=== PATIENT | female | born 1950 | race Caucasian/White ===

== ENCOUNTER 2020-02-25 15:21 | Inpatient (IN) | payer MEDICARE, SELFPAY ==
[2020-02-25] VITALS (25 sets, daily range): BP systolic 122–171; BP diastolic 53–92; PULSE 86–104; RESP 13–24; TEMP 36.7–36.8; O2SAT 93–100; BMI 38.4; BMI 42.2
--- NOTE | 2020-02-25 15:31 | XR_ITS ---
EXAMINATION: XR CHEST CLINICAL INFORMATION: Stroke COMPARISON: 09/27/2019 TECHNIQUE: Frontal view of the chest was obtained. FINDINGS: Heart size normal. Surgical clips are present in the left hemithorax. There may be some chronic calcification present in the left hemidiaphragm. Left basilar atelectasis or scarring is again seen. No new acute finding is present. XR/XR chest 1V IMPRESSION: Stable appearances when compared with 09/27/2019. No acute intrathoracic disease.
--- NOTE | 2020-02-25 15:32 | ECG_ITS ---
Test Reason : STROKE SYMPTOMS Blood Pressure : / mmHG Vent. Rate : 104 BPM Atrial Rate : 104 BPM P-R Int : 152 ms QRS Dur : 074 ms QT Int : 376 ms P-R-T Axes : 056 007 038 degrees QTc Int : 494 ms Sinus tachycardia Normal ECG When compared with ECG of 27-SEP-2019 10:32, No significant change was found Referred By: Ingrid Quezada Electronically Signed By:SOCO OWUSU MD
--- NOTE | 2020-02-25 15:32 | CT_ITS ---
EXAMINATION: CT SCAN OF THE HEAD WITHOUT CONTRAST CT ANGIOGRAM OF THE HEAD CT ANGIOGRAM OF THE NECK CLINICAL INFORMATION: Possible large vessel occlusion. Assess for possible thrombectomy. COMPARISON: CTA of the head and neck 09/27/2019. TECHNIQUE: A noncontrast CT scan of the head was obtained. Test bolus series followed by intravenous administration 70 mL of Omnipaque 350. Helical imaging was performed in the axial plane from the mediastinum to the skull vertex. A delayed post contrast CT scan of the head was obtained. The degree of stenosis is based off NASCET criteria. The data was processed at the electroencephalographic technologist workstation for generation of MIP images. Three-dimensional volume rendered reformatted images were also generated at an offline 3-D workstation. This CT examination was performed using dose optimization techniques as appropriate, variously including the following: *Automated exposure control *Adjustment of mA and/or kV according to patient size (this includes techniques or standardized protocols for targeted exams where dose is matched to indication/reason for exam; i.e. extremities or head) *Use of iterative reconstruction technique DLP: 704 mGy-cm. FINDINGS: CT Head: There is no evidence of acute intracranial hemorrhage or territorial infarction. No abnormal mass-effect or midline shift is seen. Stevens to white matter differentiation is well preserved. No extra-axial fluid collections are identified. There is no abnormal enhancement. The ventricles are normal in size. There is no abnormal attenuation within the brain parenchyma. The osseous structures and soft tissues are normal. The mastoid air cells and visualized portions of the paranasal sinuses are well-aerated. CTA Neck: There is a classic configuration of the arch of the aorta. There are mild atheromatous calcifications of the aortic arch. There are areas of great vessels of the neck are widely patent. Subclavian arteries appear normal. Both external carotid arteries are patent. There are tortuous, and the left common carotid artery extends almost to the midline. There is minimal atheromatous calcification at the left carotid bifurcation. The cervical internal carotid arteries appear normal. The origins of both vertebral arteries are well seen and appear normal. Both vertebral arteries are widely patent and demonstrate good opacification throughout their cervical course. The left vertebral artery is slightly dominant. Nonvascular: The study redemonstrates multiple calcifications in the parotid glands bilaterally. 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 There are mild emphysematous changes in the lungs. The study redemonstrates the 1.5 low density nodule at the midpole of the left lobe of the thyroid gland. There are no acute osseous findings. There is mild spondylosis and facet arthropathy in the cervical spine. CTA Head: There are mild atheromatous calcifications of the cavernous internal carotid arteries bilaterally. The vessels are patent. The middle and anterior cerebral arteries bilaterally demonstrate normal caliber with no evidence of focal stenosis, aneurysm or vascular malformation. There is normal arborization of the middle cerebral artery branches. The anterior communicating artery is normal. In the posterior circulation, the left vertebral artery is dominant. The vertebral arteries intradurally have normal caliber. The basilar artery appears normal. The posterior cerebral arteries have normal caliber. The venous sinuses opacify normally. CT/CT head for stroke IMPRESSION: CT head and neck: 1. There are no acute bleeds or territorial infarcts. There are no masses or areas of enhancement. 2. The study redemonstrates multiple calcifications in the parotid glands bilaterally. 3. 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 CTA head and neck: 1. There is minimal atheromatous calcification at multiple sites in the head and neck. 2. There are no flow-limiting stenoses, aneurysms or vascular malformations. This critical result was discussed with Ingrid Quezada by telephone on 02/25/2020 at 4:00 PM and it was ascertained that the content and urgency of the report was understood at the time of direct communication.
--- NOTE | 2020-02-25 15:33 | ED_ITS ---
HPI - Neuro Symptoms/Deficit General Chief Complaint: Weakness Stated Complaint: eye droop Time Seen by Provider: 02/25/20 15:31 Source: patient Mode of arrival: ambulatory Limitations: no limitations History of Present Illness HPI Narrative: 69 yo female with HTN, TIA 6 years ago, notes around 1230pm today she noted that the left side of her face was droopy, she took a nap and when she woke up her droop was worse and she felt her tongue was heavy and she was unable to speak that well - she did recently get dentures 8 weeks ago but today it was much worse, also notes she suffers from migraines and has had an aura recently, she also c/o low back pain and spasms for a few days. Onset (ago): hour(s) (3) Last Observed Normal: 12:30 Timing confirmed by: other (herself) Location: speech and left face History of same: Yes Severity: moderate Quality: weak Relieving factors: none Exacerbating factors: none Context: sudden onset On Anticoagulants: No Associated symptoms: other (dry mouth, anxiety, palpitations) Treatments Prior to Arrival: none Related Data Home Medications Medication Instructions Recorded Confirmed amlodipine 1 tab PO DAILY 02/25/20 02/25/20 gabapentin 1 cap PO BEDTIME 02/25/20 02/25/20 hydroxychloroquine 1 tab PO BID 02/25/20 02/25/20 mycophenolate mofetil 1 cap PO BID 02/25/20 02/25/20 omeprazole 1 cap PO DAILY 02/25/20 02/25/20 pilocarpine HCl 2 tab PO TID 02/25/20 02/25/20 venlafaxine 1 tab PO DAILY 02/25/20 02/25/20 Allergies Allergy/AdvReac Type Severity Reaction Status Date / Time acetaminophen [From PERCOCET] Allergy Unknown ITCH Unverified 01/04/20 16:53 morphine [MORPHINE] Allergy Unknown ITCH Unverified 01/04/20 16:53 From OXYCONTIN Allergy Unknown ITCH Uncoded 01/04/20 16:53 Review of Systems Review of Systems: Constitutional : No Fever, No Chills, No Fatigue ENT/Mouth : No sore throat, No Rhinorrhea Eyes: No Eye Pain, No Swelling, No Redness Cardiovascular : No Chest Pain, No SOB, No Dyspnea on Exertion Respiratory : No Cough, No Sputum Gastrointestinal : No Nausea, No Vomiting, No Diarrhea, No abdominal Pain Genitourinary : No Dysuria, No Urinary Frequency, No Hematuria, Musculoskeletal : No joint pain, No Myalgias, No Joint Swelling Skin : No Skin Lesions, No rash Neuro : pos Weakness, No Numbness, No Dizziness, no Headache Psych : No Anxiety/Panic, No Depression Heme/Lymph: No Bruising, No Bleeding,No Lymphadenopathy Endocrine : No Polyuria, No Polydipsia All other systems reviewed and are negative [facility], [place] Past Medical History Attestation statement: The following information was validated with the patient. Medical History (Updated 02/25/20 @ 16:36 by Ingrid Quezada DO) Carpal tunnel syndrome GERD (gastroesophageal reflux disease) Migraine Sjogrens syndrome Sleep apnea TIA (transient ischemic attack) Surgical History (Updated 02/25/20 @ 15:39 by Ingrid Quezada DO) S/P cholecystectomy Social History Social History (Updated 02/25/20 @ 15:39 by Ingrid Quezada DO) Smoking Status: Never smoker Use of substances other than those prescribed or required for medical reasons: No Advance Directives: No Advance Directives Information Provided: Yes Physical Exam Vital Signs: Vital Signs: Last Vital Signs Temp 98.3 F 02/25/20 15:34 Pulse 95 02/25/20 16:31 Resp 15 02/25/20 16:31 BP 151/73 H 02/25/20 16:31 Pulse Ox 100 02/25/20 16:31 Body Mass Index 38.4 Appearance: Alert. Oriented X3. Anxious, mild acute distress. Eyes: Pupils equal, round and reactive to light. ENT: Pharynx normal. Neck: Normal inspection. Neck supple. CVS: Normal heart rate and rhythm. Pulses normal. Respiratory: No respiratory distress. Breath sounds normal. Abdomen: Soft and nontender. Skin: Skin warm and dry. Normal skin color. Normal skin turgor. Extremities: No lower extremity edema. No calf ttp Neuro: Oriented X 3. partial L sided facial droop that spares the forehead. No sensory deficit. mild dysarthria Course Course Course Narrative: no report yet from Radiology 358pm call to Dr. Pickens 359pm - if CT scan negative treat with tPa - RNs aware and it is ordered call from Radiology 402pm - no acute hemorrhage noted at this time, no gross findings on CTA but just brief review pateint and aware of risks and benefits - patient wants to proceed with tPa no issues at this time feeling better, BP stable, Dr. Alexander aware and to admit patient on recheck speech is improving, L corner of mouth no longer drooping, her L eye is still drooping still able to move L forehead and L eyebrow MDM - Neuro Symptoms/Deficit MDM Narrative Medical decision making narrative: 69 yo female not on AC therapy, hx of HTN, sleep apnea, Sjogren's syndrome - here with 3 hours of L sided facial droop and some dysarthria brought back from the waiting room last known well around 1230pm per her when saw her face in mirror, has central sparing - stroke protocol initiated will discuss with Neurology only confounding issue is hx of migraines and reports aura for the past 3 days but did not have a headache and the facial droop has never happened before in the past with her migraines, she has no contraindications at this time if tPa recommended by Neurology Lab Data Result diagrams: 02/25/20 15:38 02/25/20 15:38 Labs: Lab Results 02/25/20 02/25/20 02/25/20 Range/Units 15:35 15:35 15:38 WBC (4.8-10.8) X10*3/uL RBC (4.20-5.50) X10*6/uL Hgb (12.0-16.0) g/dl Hct (37-47) % MCV (80-98) fL MCH (27.0-33.0) pg MCHC (31.0-35.0) g/dl RDW (11.0-16.0) % Plt Count (160-400) X10*3/uL MPV (9.4-12.3) fL Immature Gran % (Auto) (0.0-0.4) % Neut % (Auto) (45-73) % Lymph % (Auto) (20-40) % Greer % (Auto) (2-11) % Eos % (Auto) (0-4) % Baso % (Auto) (0-2) % Lymph # (Auto) (1.2-4.9) X10*3/uL [place] # (Auto) (0.1-1.2) X10*3/uL Eos # (Auto) (0.0-0.4) X10*3/uL Baso # (Auto) (0.0-0.2) X10*3/uL Abs Immat Gran (auto) (0.00-0.03) X10*3/uL Absolute Neuts (auto) (2.0-8.3) X10*3/uL Absolute Nucleated RBC (0.0-0.012) X10*3/uL Nucleated RBC % (auto) (0.0-0.2) /100WBC PT (10.8-13.0) SEC Whole Blood PT 11.3 (11.1-13.5) sec INR (0.9-1.1) Whole Blood INR 0.9 (0.9-1.1) APTT (24.1-38.0) SEC Sodium (135-145) mmol/L Potassium (3.3-5.1) mmol/l Chloride (96-108) mmol/L Carbon Dioxide (22-29) mmol/L Anion Gap (12-20) BUN (9-16) mg/dL Creatinine (0.5-1.4) mg/dL Estim Creat Clear Calc Estimated GFR POC Glucose 116 H (60-115) mg/dL Random Glucose (60-115) mg/dL Calcium (8.4-10.2) mg/dL Magnesium 2.0 (1.6-2.6) mg/dL Total Bilirubin 0.3 (0.0-1.0) mg/dL Direct Bilirubin < 0.2 (0.0-0.5) mg/dL AST 18 (5-31) U/L ALT 17 (0-31) U/L Alkaline Phosphatase 106 (39-117) U/L Total Creatine Kinase (26-140) U/L Troponin I High Sens (<3.5-17.0) ng/L Total Protein 7.6 (6.5-8.0) g/dL Albumin 4.4 (3.5-5.0) g/dL 02/25/20 02/25/20 02/25/20 Range/Units 15:38 15:38 15:38 WBC 8.5 (4.8-10.8) X10*3/uL RBC 4.84 (4.20-5.50) X10*6/uL Hgb 12.6 (12.0-16.0) g/dl Hct 39.4 (37-47) % MCV 81.4 (80-98) fL MCH 26.0 L (27.0-33.0) pg MCHC 32.0 (31.0-35.0) g/dl RDW 15.1 (11.0-16.0) % Plt Count 265 (160-400) X10*3/uL MPV 12.1 (9.4-12.3) fL Immature Gran % (Auto) 0.2 (0.0-0.4) % Neut % (Auto) 74.5 H (45-73) % Lymph % (Auto) 17.2 L (20-40) % Greer % (Auto) 6.6 (2-11) % Eos % (Auto) 1.3 (0-4) % Baso % (Auto) 0.2 (0-2) % Lymph # (Auto) 1.5 (1.2-4.9) X10*3/uL Greer # (Auto) 0.6 (0.1-1.2) X10*3/uL Eos # (Auto) 0.1 (0.0-0.4) X10*3/uL Baso # (Auto) 0.0 (0.0-0.2) X10*3/uL Abs Immat Gran (auto) 0.02 (0.00-0.03) X10*3/uL Absolute Neuts (auto) 6.4 (2.0-8.3) X10*3/uL Absolute Nucleated RBC 0.060 H (0.0-0.012) X10*3/uL Nucleated RBC % (auto) 0.7 H (0.0-0.2) /100WBC PT 10.6 L (10.8-13.0) SEC Whole Blood PT (11.1-13.5) sec INR 0.9 (0.9-1.1) Whole Blood INR (0.9-1.1) APTT 32.1 (24.1-38.0) SEC Sodium 140 (135-145) mmol/L Potassium 3.9 (3.3-5.1) mmol/l Chloride 104 (96-108) mmol/L Carbon Dioxide 23 (22-29) mmol/L Anion Gap 17 (12-20) BUN 16 (9-16) mg/dL Creatinine 0.79 (0.5-1.4) mg/dL Estim Creat Clear Calc 85.9 Estimated GFR > 60 POC Glucose (60-115) mg/dL Random Glucose 99 (60-115) mg/dL Calcium 8.9 (8.4-10.2) mg/dL Magnesium (1.6-2.6) mg/dL Total Bilirubin (0.0-1.0) mg/dL Direct Bilirubin (0.0-0.5) mg/dL AST (5-31) U/L ALT (0-31) U/L Alkaline Phosphatase (39-117) U/L Total Creatine Kinase 71 (26-140) U/L Troponin I High Sens (<3.5-17.0) ng/L Total Protein (6.5-8.0) g/dL Albumin (3.5-5.0) g/dL 02/25/20 Range/Units 15:38 WBC (4.8-10.8) X10*3/uL RBC (4.20-5.50) X10*6/uL Hgb (12.0-16.0) g/dl Hct (37-47) % MCV (80-98) fL MCH (27.0-33.0) pg MCHC (31.0-35.0) g/dl RDW (11.0-16.0) % Plt Count (160-400) X10*3/uL MPV (9.4-12.3) fL Immature Gran % (Auto) (0.0-0.4) % Neut % (Auto) (45-73) % Lymph % (Auto) (20-40) % Greer % (Auto) (2-11) % Eos % (Auto) (0-4) % Baso % (Auto) (0-2) % Lymph # (Auto) (1.2-4.9) X10*3/uL Greer # (Auto) (0.1-1.2) X10*3/uL Eos # (Auto) (0.0-0.4) X10*3/uL Baso # (Auto) (0.0-0.2) X10*3/uL Abs Immat Gran (auto) (0.00-0.03) X10*3/uL Absolute Neuts (auto) (2.0-8.3) X10*3/uL Absolute Nucleated RBC (0.0-0.012) X10*3/uL Nucleated RBC % (auto) (0.0-0.2) /100WBC PT (10.8-13.0) SEC Whole Blood PT (11.1-13.5) sec INR (0.9-1.1) Whole Blood INR (0.9-1.1) APTT (24.1-38.0) SEC Sodium (135-145) mmol/L Potassium (3.3-5.1) mmol/l Chloride (96-108) mmol/L Carbon Dioxide (22-29) mmol/L Anion Gap (12-20) BUN (9-16) mg/dL Creatinine (0.5-1.4) mg/dL Estim Creat Clear Calc Estimated GFR POC Glucose (60-115) mg/dL Random Glucose (60-115) mg/dL Calcium (8.4-10.2) mg/dL Magnesium (1.6-2.6) mg/dL Total Bilirubin (0.0-1.0) mg/dL Direct Bilirubin (0.0-0.5) mg/dL AST (5-31) U/L ALT (0-31) U/L Alkaline Phosphatase (39-117) U/L Total Creatine Kinase (26-140) U/L Troponin I High Sens < 3.5 (<3.5-17.0) ng/L Total Protein (6.5-8.0) g/dL Albumin (3.5-5.0) g/dL ECG Data Attestation: I personally reviewed and interpreted this ECG as follows: ECG interpretation date: 02/25/20 ECG interpretation time: 15:42 Interpretation: Rate: 104 Rhythm: sinus tachycardia [place]: normal Normal P waves. Normal RAQUEL. Normal QRS complex. ST T wave : normal qTC: normal prior studies: some artifact, no active ischemia The study has been interpreted contemporaneously by me. . NIH Stroke Scale Internal: Initial- Upon Arrival Level of Consciousness: Alert Level of Consciousness Questions: Answers both questions correctly Level of Consciousness Commands: Performs both tasks correctly Best Gaze: Normal Visual: No visual loss Facial Palsy: Partial paralysis Motor Arm (Right): No drift Motor Arm (Left): No drift Motor Leg (Right): No drift Motor Leg (Left): No drift Limb Ataxia: Absent Sensory: Normal Best Language: No aphasia Dysarthia: Mild to moderate dysarthria Extinction and Inattention: No abnormality Score: 3 Critical Care Time Critical Care Time Critical Care Time: Yes Total Critical Care Time: 60 Attestation: medical consult, tPa, call to Neurology/ICU, bedside for tPa I attest to this time spent taking care of the patient Discharge Plan Discharge Clinical Impression: Acute CVA (cerebrovascular accident) Patient Disposition: Admitted As Inpatient
[2020-02-25 15:43] LABS: MANUAL DIFF FLAG NO
[2020-02-25 15:44] LABS: Glucose, Whole Blood 116 mg/dL (60-115); Prothrombin Time Whole Bld POC 11.3 sec (11.1-13.5); ~PT, ~INR - Anti Coag Clinic 0.9 (0.9-1.1)
[2020-02-25 15:44] LABS: Basophils Percent Auto 0.2 % (0-2); Eosinophils Absolute Auto 0.1 X10*3/uL (0.0-0.4); Eosinophils Percent Auto 1.3 % (0-4); Hematocrit 39.4 % (37-47); Hemoglobin 12.6 g/dl (12.0-16.0); Imm Gran Abs Auto 0.02 X10*3/uL (0.00-0.03); Imm Gran Pct Auto 0.2 % (0.0-0.4); Lymphocytes Absolute Auto 1.5 X10*3/uL (1.2-4.9); Lymphocytes Percent Auto 17.2 % (20-40); Mean Corpuscular Volume 81.4 fL (80-98); Mean Platelet Volume 12.1 fL (9.4-12.3); Monocytes Absolute Auto 0.6 X10*3/uL (0.1-1.2); Monocytes Percent Auto 6.6 % (2-11); NRBC Pct Auto 0.7 /100WBC (0.0-0.2); Neutrophils Absolute Auto 6.4 X10*3/uL (2.0-8.3); Neutrophils Percent Auto 74.5 % (45-73); Platelet Count 265 X10*3/uL (160-400); Red Blood Count 4.84 X10*6/uL (4.20-5.50); Red Cell Distribution Width 15.1 % (11.0-16.0); White Blood Count 8.5 X10*3/uL (4.8-10.8)
[2020-02-25 15:47] LABS: Stroke Lab Use COMPLETE
[2020-02-25 15:51] LABS: INTERNATIONAL NORM RATIO 0.9 (0.9-1.1); Prothrombin Time 10.6 SEC (10.8-13.0)
[2020-02-25] MEDS: iohexoL 350 MG/ML 100 ML INFUS..BTL IV (15:53)
[2020-02-25 15:54] LABS: Partial Thromboplastin Time 32.1 SEC (24.1-38.0)
[2020-02-25 16:20] LABS: Alanine Aminotransferase 17 U/L (0-31); Albumin Level 4.4 g/dL (3.5-5.0); Alkaline Phosphatase 106 U/L (39-117); Aspartate Amino Transferase 18 U/L (5-31); Bilirubin Direct < 0.2 mg/dL (0.0-0.5); Bilirubin Total 0.3 mg/dL (0.0-1.0); Total Protein 7.6 g/dL (6.5-8.0); Troponin-I High Sensitivity < 3.5 ng/L (<3.5-17.0)
[2020-02-25 16:24] LABS: Anion Gap 17 (12-20); Blood Urea Nitrogen 16 mg/dL (9-16); Calcium 8.9 mg/dL (8.4-10.2); Carbon Dioxide 23 mmol/L (22-29); Chloride 104 mmol/L (96-108); Creatinine Clr Calc Pharmacy 85.9; Estimated Glomerular Filt Rate > 60; Glucose Random 99 mg/dL (60-115); Potassium 3.9 mmol/l (3.3-5.1); Sodium 140 mmol/L (135-145)
--- NOTE | 2020-02-25 16:43 | PC.NURSE ---
daughter cisco could like to be contacted at [phone]
--- NOTE | 2020-02-25 16:53 | PM.EVENT ---
Event Note Date of Service: 02/25/2020 Event Note: 69 yo woman being given TPA in ED for presumed stroke. Will be admitted to ICU. PMHx obesity, HTN, TIA 6 years ago, migraines w recent aura, but no GEE now. Has VALERIANO, wears CPAP at home. About 3 hours DISABILITY COORDINATOR noted that the left side of her face was droopy. She took a nap and when she woke up her droop was worse and she felt her tongue was heavy and she was unable to speak that well. In ED, BP about 170/80. Obvious left facial droop, according to Dr. Quezada, no other neuro deficits. CT negative. Consulted Dr. Pickens who approved the TPA. On arrival to the ICU, BP 158/83. Breathing easy w SpO2 97% room air. I questioned her and examined her with Dr. Pickens. On exam, the only finding is a slight left eyelid ptosis, but the orbicularis musc is strong. She also has sl. thick speech which she says is her usual bec of her new dentures. She said her speech was worse before the TPA. She has no other neuro deficits. We gave her a mirror to look at herself. She says that her lid droop was worse before the TPA. 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 The picture on it seems to show a slight left ptosis. Passed a bedside swallow eval with no problem. IMPRESSION: Possible stroke. MRI tomorrow will tell. Admit for neuro- and hemod monitoring. Further w/u tomorrow. Time: 40 min. ([id number])
[2020-02-25 17:19] LABS: SARS COV2 PCR INHOUSE NEGATIVE (Negative)
--- NOTE | 2020-02-25 18:04 | PM.NEUROCN ---
History of Present Illness Data of Consult Service Date: 02/25/20 Primary Care Provider: Aden Dinero MD HPI Reason for consult: Left facial droop and dysarthria This is a 69-year-old woman who presented 3-1/2 hours after onset of left facial droop and closing of the left eye and takes slurred speech. She had a negative CT scan of the head in the ER and was given TPA the diagnoses of acute stroke with a stroke scale of 3. She feels that her speech is better and almost back to normal although it's still a little hard which she attributes to her new dentures that she is getting used to. She feels that her face is better but her left eye is still droopy. There is no previous history of stroke. She has a history of migraines with aura and for the last 2 or 3 days she has been having visual aura in the left field and minor headaches.Her history is remarkable for hypertension, Mild depression. Review of Systems Eyes: Eyes: Reports no additional eye complaints ENT: Reports system reviewed and no additional complaints, except as documented and Reports Normal hearing present Cardiovascular: Cardiovascular: Reports no additional cardiovascular complaints Respiratory: Respiratory: Reports no additional respiratory complaints Gastrointestinal: Gastrointestinal: Reports no additional gastrointestinal complaints Musculoskeletal: Musculoskeletal: Reports no additional musculoskeletal complaints Integumentary/Breasts: Skin/Breast: Reports system reviewed and no additional complaints, except as docu Neurologic: Reports as per HPI and Reports Normal hearing present Psychiatric: Psychiatric: Reports as per HPI Endocrine: Endocrine: Reports no additional endocrine complaints Hematologic/Lymphatic: Hematologic/Lymphatic: Reports no additional hematologic/lymphatic complaints Allergic/Immunologic: Allergic/Immunologic: Reports no additional allergic/immunologic complaints [facility] Past Medical History Medical History (Updated 02/25/20 @ 18:10 by Mary Pickens MD) Carpal tunnel syndrome GERD (gastroesophageal reflux disease) Migraine Sjogrens syndrome Sleep apnea TIA (transient ischemic attack) Surgical History Surgical History (Updated 02/25/20 @ 15:39 by Ingrid Quezada DO) S/P cholecystectomy Social History Social History (Updated 02/25/20 @ 15:39 by Ingrid Quezada DO) Smoking Status: Never smoker Use of substances other than those prescribed or required for medical reasons: No Advance Directives: No Advance Directives Information Provided: Yes Meds Allergies Allergy/AdvReac Type Severity Reaction Status Date / Time acetaminophen [From PERCOCET] Allergy Unknown ITCH Unverified 01/04/20 16:53 morphine [MORPHINE] Allergy Unknown ITCH Unverified 01/04/20 16:53 From OXYCONTIN Allergy Unknown ITCH Uncoded 01/04/20 16:53 Home Medications Medication Instructions Recorded Confirmed Type amlodipine 1 tab PO DAILY 02/25/20 02/25/20 History gabapentin 1 cap PO BEDTIME 02/25/20 02/25/20 History hydroxychloroquine 1 tab PO BID 02/25/20 02/25/20 History mycophenolate mofetil 1 cap PO BID 02/25/20 02/25/20 History omeprazole 1 cap PO DAILY 02/25/20 02/25/20 History pilocarpine HCl 2 tab PO TID 02/25/20 02/25/20 History venlafaxine 1 tab PO DAILY 02/25/20 02/25/20 History Physical Exam Vital Signs: Vital Signs: Last Vital Signs Temp 98.3 F 02/25/20 15:34 Pulse 96 02/25/20 17:15 Resp 20 02/25/20 17:15 BP 142/72 H 02/25/20 17:15 Pulse Ox 98 02/25/20 17:15 Body Mass Index 38.4 Const: General: cooperative, comfortable, no acute distress, well developed, alert and awake Nutritional Appearance: well nourished Orientation/consciousness: oriented to person, oriented to place and oriented to time Limitations: no limitations HENMT: Head: Yes normal to inspection, Yes normocephalic and Yes atraumatic Ears: hearing grossly normal bilaterally General nose exam: Normal external nose present Face and sinus: Yes normal facial exam Mouth: Normal oral and palatal mucosa present Eyes: General: appearance normal, both eyes and all related structures Visual [place]: normal visual [place] by confrontation Alignment and Position: alignment normal Periorbital: periorbital findings normal Eyelids: Yes eyelids normal Conjunctivae: conjunctivae normal Sclerae: sclerae normal Corneas: corneas normal Pupils: Equal, round and reactive pupils present and Pupil accommodation reflex normal EOM: EOMs intact bilaterally Direct Ophthalmoscopy: normal light reflex Neck: Neck: Yes normal visual inspection, Yes full ROM and Yes no meningeal signs Thyroid: Thyroid normal Carotids: normal carotid upstroke and bounding pulses Chest: Chest palpation & inspection: normal inspection of the chest Resp: Effort & Inspection: normal respiratory effort Auscultation: clear to auscultation bilaterally Cardio: Rate: regular rate Rhythm: regular rhythm Heart sounds: S1 normal heart sound present and S2 normal heart sound present Peripheral pulses: Peripheral pulses 2+ throughout GI: Inspection: Yes normal to inspection Percussion: Yes normal to percussion Auscultation: normal bowel sounds Rectal Exam - Female: deferred Back/Spine/Pelvis: Cervical Spine: normal cervical lordosis and cervical ROM normal Thoracic/Lumbar Spine: thoracic and lumbar spine normal to inspection Skin: General skin exam: no rashes or lesions noted Neuro: General: oriented to person, oriented to place, oriented to time, gait normal, tone normal, moves all extremities, Normal light touch and pain sensation, no meningeal signs, no focal motor deficits, CN's II-XI intact bilaterally, normal sensation to monofilament and deep tendon reflexes 2+ bilaterally Cranial nerves: Yes CN's II-XII intact bilaterally (Except for drooping of the left Upper lid with mild blepharospasm), Yes Equal, round and reactive pupils present, Yes Bilaterally intact EOM present, Yes Nystagmus not present, Yes Normal facial strength present (No facial weakness but she has ptosis of the left upper lid), Yes Midline tongue present, Yes Normal gag reflex present, Yes Symmetric palate elevation present, Yes Normal hearing present and Yes Ability to bilaterally rotate head present Cognition (Neuro): normal cognition Speech: Other speech findings present (Neuro) Gait exam (Neuro): Normal gait present Motor exam (neuro): 5/5 motor strength present throughout, Pronator motor function not present, no tremor noted, no asterixis, Motor fasciculations not present, Normal motor muscle tone present throughout and Motor abnormalities not present Sensory Exam: Bilaterally intact graphesthesia Deep tendon reflexes (DTR's): Right triceps reflex intensity grade: 2+, Left triceps reflex intensity grade: 2+, Rt Biceps (C5, C6): 2+, Left biceps reflex intensity grade: 2+, Right brachioradialis reflex intensity grade: 2+, Left brachioradialis reflex intensity grade: 2+, Right patellar reflex intensity grade: 2+, Left patellar reflex intensity grade: 2+, Right ankle reflex intensity grade: 2+ and Left ankle reflex intensity grade: 2+ Plantar Reflex Responses: downgoing: right, left and bilateral Coordination: [id number]-[id number] test normal, [id number]-[id number] test normal, tandem gait normal and Romberg test negative Pupils: Normal pupillary reactivity/response: bilateral Extrem: General: Yes normal to inspection, Yes normal exam except as noted and Yes no pedal edema Psych: Appearance: grossly normal Mental Status: mental status grossly normal Speech and movement: Normal speech and movement present and Clear speech present Affect: normal affect Attitude: cooperative Thought process: Normal thought process present Results Labs CBC & Chem 7: 02/25/20 15:38 02/25/20 15:38 Labs: Short CBC 02/25/20 Range/Units 15:38 WBC 8.5 (4.8-10.8) X10*3/uL Hgb 12.6 (12.0-16.0) g/dl Hct 39.4 (37-47) % Plt Count 265 (160-400) X10*3/uL BMP 02/25/20 15:38 Sodium 140 Potassium 3.9 Chloride 104 Carbon Dioxide 23 BUN 16 Creatinine 0.79 Calcium 8.9 Cardiac Enzymes 02/25/20 Range/Units 15:38 Total Creatine Kinase 71 (26-140) U/L Liver Function 02/25/20 Range/Units 15:38 Total Bilirubin 0.3 (0.0-1.0) mg/dL Direct Bilirubin < 0.2 (0.0-0.5) mg/dL AST 18 (5-31) U/L ALT 17 (0-31) U/L Alkaline Phosphatase 106 (39-117) U/L Albumin 4.4 (3.5-5.0) g/dL Assessment and Plan (1) Acute CVA (cerebrovascular accident): Problem details: Her speech is almost back to normal. She has some ptosis of the left upper lid Status: Acute Status post TPA for acute stroke like event. Recommend MRI of the brain in the morning to see if there has been a small acute stroke. May start aspirin 81 mg after 24 hours. (2) Ptosis: Status: Acute Observation (3) Migraine with aura: Status: Acute Observation
--- NOTE | 2020-02-25 18:53 | PC.NURSE ---
Artem Boyle and daughter Noris Frazier are pt's health care proxies. Noris is the primary proxy per pt. Phone number for Noris is [phone]
--- NOTE | 2020-02-25 19:16 | PM.CCHP ---
History of Present Illness Date of Service: 02/25/20 <RAINE Stevens - Last Filed: 02/26/20 03:17> Chief Complaint: facial droop <RAINE Stevens - Last Filed: 02/26/20 03:17> Patient is a 69-year-old female with a past medical history of TIA 6 yrs ago not on AC therapy, HTN, VALERIANO wears CPAP at night and Sjogren's sydrome came to the ED c/o 3 hours left sided facial droop. she states around 12:30pm today she noticed the left side of her face was droopy, she took a nap and when she woke up she states that it was worse so she came to the emergency department. The patient states she has had an aura for the past 3 days but no headache, she does have a remote history of migraines. the patient also states she is unable to speak that well, tongue is heavy she says she got dentures about 8 weeks ago and this has affected her speech but her speech today is worse than her baseline. In the ED, Dr Quezada notes left sided facial droop with central sparing, Stroke protocol was initiated, Dr. Pickens examined the patient, head CT was negative so tPA was ordered and given at 4:11pm. Upon arrival, BP was 160/87, HR 100, RR 18, O2 96% on RA, EKG NSR, no acute changes, labs all WNL. Pt to be admitted to ICU for monitoring s/p tPA. <RAINE Stevens - Last Filed: 02/26/20 03:17> Review of Systems Review of Systems: Constitutional: No Weight loss, No Fever, No Chills, No Night Sweats, No Fatigue, No Malaise ENT/Mouth: No Hearing loss, No Ear Pain, No Nasal Congestion, No Sinus Pain, No Hoarseness, No sore throat Eyes: No Eye Pain, No Swelling, No Redness, No Foreign Body, No Discharge, No Vision Changes Cardiovascular: No Chest Pain, No SOB, No Dyspnea on Exertion, No Orthopnea, No Edema, No Palpitations Respiratory: No Cough, No Sputum, No Wheezing, No Smoke Exposure, No Dyspnea Gastrointestinal: No Nausea, No Vomiting, No Diarrhea, No Constipation, No abdominal Pain, No Hematochezia, No Melena Musculoskeletal: No joint pain, No Myalgias, No Joint Swelling Skin: No Skin Lesions, No rash Neuro: No Weakness, No Numbness, No Paresthesias, No Loss of Consciousness, No Dizziness, No Headache, + aura, + left sided facial droop <RAINE Stevens - Last Filed: 02/26/20 03:17> Yes all other systems are reviewed and are negative <RAINE Stevens - Last Filed: 02/26/20 03:17> ENT: Reports Normal hearing present <RAINE Stevens Last Filed: 02/26/20 03:17> Neurologic: Reports as per HPI, Reports Normal hearing present and Denies Sensory deficit (Neuro) <RAINE Stevens Last Filed: 02/26/20 03:17> PMF Past Medical History Medical History: Medical History Abnormal colonoscopy Abnormal endoscopy of upper gastrointestinal tract Carpal tunnel syndrome Cataracts, bilateral Chemotherapy management, encounter for Colon polyps Far-sightedness Full dentures GERD (gastroesophageal reflux disease) Migraine 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 Sjogrens syndrome Sleep apnea TIA (transient ischemic attack) <RAINE Stevens Last Filed: 02/26/20 03:17> Functional capacity: independent ambulation <RAINE Stevens - Last Filed: 02/26/20 03:17> Patient : No <RAINE Stevens Last Filed: 02/26/20 03:17> Surgical History Surgical History: Surgical History H/O parathyroidectomy History of lung biopsy S/P cholecystectomy <RAINE Stevens Last Filed: 02/26/20 03:17> Social History Social History: Social History Household Members: Spouse Housing: House Do you presently have visiting nurse or other home services: No Smoking Status: Never smoker Use of substances other than those prescribed or required for medical reasons: No Currently Displaying Signs/Symptoms of Drug Intoxication Withdrawal: No Have you been hit, kicked, punched, or otherwise hurt by someone within the past year? If so, by whom?: No Do you feel safe in your current relationship?: No Is there a partner from a previous relationship who is making you feel unsafe now?: No Are you made to feel afraid or neglected: No Advance Directives: No Advance Directives Information Provided: Yes Do you have thoughts of harming others: None Do you have a plan to hurt others: No Plan Recently lost weight without trying: No <RAINE Stevens - Last Filed: 02/26/20 03:17> Meds Allergies/Adverse reactions: Allergies Allergy/AdvReac Type Severity Reaction Status Date / Time morphine [MORPHINE] Allergy Unknown ITCH Verified 02/26/20 11:17 From OXYCONTIN Allergy Unknown ITCH Uncoded 01/04/20 16:53 <RAINE Stevens - Last Filed: 02/26/20 03:17> Home medications: Home Medications Medication Instructions Recorded Confirmed Type amlodipine 1 tab PO DAILY 02/25/20 02/25/20 History gabapentin 1 cap PO BEDTIME 02/25/20 02/25/20 History hydroxychloroquine 1 tab PO BID 02/25/20 02/25/20 History mycophenolate mofetil 1 cap PO BID 02/25/20 02/25/20 History omeprazole 1 cap PO DAILY 02/25/20 02/25/20 History pilocarpine HCl 2 tab PO TID 02/25/20 02/25/20 History venlafaxine 1 tab PO DAILY 02/25/20 02/25/20 History <RAINE Stevens - Last Filed: 02/26/20 03:17> Physical Exam Vital Signs: Vital Signs: Last Vital Signs Temp 98.3 F 02/25/20 15:34 Pulse 95 02/25/20 19:13 Resp 24 H 02/25/20 19:13 BP 134/80 02/25/20 19:13 Pulse Ox 97 02/25/20 19:13 Body Mass Index 42.2 <RAINE Stevens Last Filed: 02/26/20 03:17> Const: General: cooperative, healthy appearing, comfortable and no acute distress <Katherine Thomas PA - Last Filed: 02/26/20 03:17> Nutritional Appearance: obese <Katherine Thomas PA - Last Filed: 02/26/20 03:17> Orientation/consciousness: patient oriented x3 <Katherine Thomas PA - Last Filed: 02/26/20 03:17> Limitations: no limitations <Katherine Thomas PA - Last Filed: 02/26/20 03:17> HENMT: Head: Yes normal to inspection and Yes atraumatic <Katherine Thomas PA - Last Filed: 02/26/20 03:17> Ears: hearing grossly normal bilaterally <Katherine Thomas PA - Last Filed: 02/26/20 03:17> Face and sinus: Yes other (slight left sided droop) <Katherine Thomas PA - Last Filed: 02/26/20 03:17> Teeth and gingiva: dentures <Katherine Thomas PA - Last Filed: 02/26/20 03:17> Eyes: Eyelids: Yes lid lag (left slight) <Katherine Thomas PA - Last Filed: 02/26/20 03:17> Pupils: Equal, round and reactive pupils present <Katherine Thomas PA - Last Filed: 02/26/20 03:17> EOM: EOMs intact bilaterally <Katherine Thomas PA - Last Filed: 02/26/20 03:17> Neck: Neck: Yes normal visual inspection, Yes full ROM and Yes supple <Katherine Thomas PA - Last Filed: 02/26/20 03:17> Resp: Effort & Inspection: normal respiratory effort and able to speak in complete sentences <Katherine Thomas PA - Last Filed: 02/26/20 03:17> Auscultation: clear to auscultation bilaterally, no crackles, no rales, no rhonchi and no wheezes <Katherine Thomas PA - Last Filed: 02/26/20 03:17> Cardio: Rate: regular rate <Katherine Thomas PA - Last Filed: 02/26/20 03:17> Rhythm: regular rhythm <Katherine William PA - Last Filed: 02/26/20 03:17> Heart sounds: normal S1 and S2 <Katherine Thomas PA - Last Filed: 02/26/20 03:17> GI: Inspection: Yes normal to inspection and Yes obesity <Katherine Thomas PA - Last Filed: 02/26/20 03:17> Palpation (GI): Soft to palpation, nontender and no guarding <Katherine Thomas PA - Last Filed: 02/26/20 03:17> Auscultation: normal bowel sounds <Katherine Thomas PA - Last Filed: 02/26/20 03:17> Neuro: General: patient oriented x3 <Katherine Thomas PA - Last Filed: 02/26/20 03:17> Cranial nerves: Yes CN's II-XII intact bilaterally, Yes Equal, round and reactive pupils present, Yes Bilaterally intact EOM present and Yes Normal hearing present <Katherine Thomas PA - Last Filed: 02/26/20 03:17> Cognition (Neuro): normal cognition <Katherine Thomas PA - Last Filed: 02/26/20 03:17> Speech: Abnormal speech present Details: garbled (pt not wearing dentures during assessment) <Katherine Thomas PA - Last Filed: 02/26/20 03:17> Motor exam (neuro): 5/5 motor strength present throughout, Pronator motor function not present and Motor abnormalities not present <Katherine Thomas PA - Last Filed: 02/26/20 03:17> Sensory Exam: No Sensory deficit (Neuro) <Katherine Thomas PA - Last Filed: 02/26/20 03:17> Results Labs CBC and Chem 7: : 02/26/20 05:21 02/26/20 05:21 <Katherine Thomas PA - Last Filed: 02/26/20 03:17> Labs: Laboratory Results - last 24 hr 02/25/20 02/25/20 02/25/20 15:35 15:35 15:38 MCV MCH MCHC RDW Plt Count MPV Immature Gran % (Auto) Neut % (Auto) Lymph % (Auto) Noble % (Auto) Eos % (Auto) Baso % (Auto) Lymph # (Auto) Noble # (Auto) Eos # (Auto) Baso # (Auto) Abs Immat Gran (auto) Absolute Neuts (auto) Absolute Nucleated RBC Nucleated RBC % (auto) PT Whole Blood PT 11.3 INR Whole Blood INR 0.9 APTT Anion Gap Estim Creat Clear Calc Estimated GFR POC Glucose 116 H Random Glucose Calcium Magnesium 2.0 Total Bilirubin 0.3 Direct Bilirubin < 0.2 AST 18 ALT 17 Alkaline Phosphatase 106 Total Creatine Kinase Troponin I High Sens Total Protein 7.6 Albumin 4.4 Coronavirus (PCR) 02/25/20 02/25/20 02/25/20 15:38 15:38 15:38 MCV 81.4 MCH 26.0 L MCHC 32.0 RDW 15.1 Plt Count 265 MPV 12.1 Immature Gran % (Auto) 0.2 Neut % (Auto) 74.5 H Lymph % (Auto) 17.2 L Noble % (Auto) 6.6 Eos % (Auto) 1.3 Baso % (Auto) 0.2 Lymph # (Auto) 1.5 Noble # (Auto) 0.6 Eos # (Auto) 0.1 Baso # (Auto) 0.0 Abs Immat Gran (auto) 0.02 Absolute Neuts (auto) 6.4 Absolute Nucleated RBC 0.060 H Nucleated RBC % (auto) 0.7 H PT 10.6 L Whole Blood PT INR 0.9 Whole Blood INR APTT 32.1 Anion Gap 17 Estim Creat Clear Calc 85.9 Estimated GFR > 60 POC Glucose Random Glucose 99 Calcium 8.9 Magnesium Total Bilirubin Direct Bilirubin AST ALT Alkaline Phosphatase Total Creatine Kinase 71 Troponin I High Sens Total Protein Albumin Coronavirus (PCR) 02/25/20 02/25/20 15:38 16:09 MCV MCH MCHC RDW Plt Count MPV Immature Gran % (Auto) Neut % (Auto) Lymph % (Auto) Noble % (Auto) Eos % (Auto) Baso % (Auto) Lymph # (Auto) Noble # (Auto) Eos # (Auto) Baso # (Auto) Abs Immat Gran (auto) Absolute Neuts (auto) Absolute Nucleated RBC Nucleated RBC % (auto) PT Whole Blood PT INR Whole Blood INR APTT Anion Gap Estim Creat Clear Calc Estimated GFR POC Glucose Random Glucose Calcium Magnesium Total Bilirubin Direct Bilirubin AST ALT Alkaline Phosphatase Total Creatine Kinase Troponin I High Sens < 3.5 Total Protein Albumin Coronavirus (PCR) NEGATIVE <RAINE Stevens - Last Filed: 02/26/20 03:17> Imaging Radiologist's Impressions: Impressions Chest X-Ray 02/25/20 15:31 IMPRESSION: Stable appearances when compared with 09/27/2019. No acute intrathoracic disease. Head CT 02/25/20 15:32 IMPRESSION: CT head and neck: 1. There are no acute bleeds or territorial infarcts. There are no masses or areas of enhancement. 2. The study redemonstrates multiple calcifications in the parotid glands bilaterally. 3. 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 CTA head and neck: 1. There is minimal atheromatous calcification at multiple sites in the head and neck. 2. There are no flow-limiting stenoses, aneurysms or vascular malformations. This critical result was discussed with Ingrid Quezada by telephone on 02/25/2020 at 4:00 PM and it was ascertained that the content and urgency of the report was understood at the time of direct communication. Head/Neck CTA 02/25/20 15:32 IMPRESSION: CT head and neck: 1. There are no acute bleeds or territorial infarcts. There are no masses or areas of enhancement. 2. The study redemonstrates multiple calcifications in the parotid glands bilaterally. 3. 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 CTA head and neck: 1. There is minimal atheromatous calcification at multiple sites in the head and neck. 2. There are no flow-limiting stenoses, aneurysms or vascular malformations. This critical result was discussed with Ingrid Quezada by telephone on 02/25/2020 at 4:00 PM and it was ascertained that the content and urgency of the report was understood at the time of direct communication. <RAINE Stevens - Last Filed: 02/26/20 03:17> Assessment and Plan (1) Acute CVA (cerebrovascular accident): Status: Acute <RAINE Stevens - Last Filed: 02/26/20 03:17> hemodynamic and neurological monitoring as per s/p tPA/stroke protocol <RAINE Stevens - Last Filed: 02/26/20 03:17>
--- NOTE | 2020-02-25 19:35 | MHC.STROKE ---
Addendum entered by Maya Gannon RN 02/27/20 12:11: DR. JACKSON IS NOT RECOMMENDING A HIGH DOSE STATIN, SHE WILL START ON ATORVASTATIN 20MG AND I ADVISED HER TO MONITOR FOR SIDE EFFECTS AND DISCUSS WITH HER PCP. Addendum entered by Maya Gannon RN 02/27/20 12:09: I SPOKE WITH DR JACKSON AND HE IS RECOMMENDING ASPIRIN 81MG DAILY AND A STATIN. Addendum entered by Maya Gannon RN 02/27/20 11:39: I MET WITH PATIENT TODAY PRIOR TO DISCHARGE. WE REVIEWED HER DIAGNOSIS AND MRI RESULTS. WE REVIEWED HER STROKE RISK FACTORS INCLUDING INCREASING HER ACTIVITY LEVEL AND WEIGHT LOSS. WE TALKED ABOUT STARTING A STATIN AND WHY. WE REVIEWED CTA RESULTS WELL. WE TALKED ABOUT CALLING 911 IF STROKE S&S ABRUPTLY COME ON. SHE HAS A FOLLOW UP APPOINTMENT WITH DR PITTMAN ON MARCH 06, 2020 AND A RHEUMATOLOGY APPOINTMENT ON 02/29/20. I ANSWERED ALL OF HER QUESTIONS. SHE IS MOTIVATED TO MAKE POSITIVE CHANGES IN HER LIFESTYLE. Addendum entered by Maya Gannon RN 02/26/20 13:11: I MET WITH THE PATIENT THIS MORNING TO DISCUSS HER DIAGNOSIS AND PLAN OF CARE. I EXPLAINED OUR PROCESS HERE AT [facility] FOR STROKE CARE. I ANSWERED ALL OF HER QUESTIONS AND I WILL FOLLOW UP WITH HER AFTER ALL OF HER TESTING IS COMPLETED. I PROVIDED STROKE EDUCATION POWER POINT SLIDES AND REINFORCED THE STROKE BOOKLET. Original Note: 1532 NOTIFIED BY ED OF STROKE PROTOCOL ACTIVATION. PATIENT WALKED IN AT 1521. LAST KNOWN WELL 1230. NIHSS = 3, FACIAL DROOP AND DYSARTHRIA. STAT CT HEAD AND CTA H/N. NO BLEED, NO CONTRAINDICATIONS TO ALTEPLASE, NEUROLOGIST RECOMMENDED TPA (ALTEPLASE). TPA GIVEN AT 1611. DOOR TO NEEDLE 50 MINUTES. DELAY GREATER THAN 30 MINUTES AND 45 MINUTES DUE TO CARE TEAM DETERMINING ELIGIBILITY DUE TO PAST HISTORY OF SJOGREN'S SYNDROME AND MIGRAINES COMPARED TO HER BASELINE. NPO FOR 6 HOURS S/P TPA. I SPOKE WITH DR DEMARCO AND WE REVIEWED ALL OF THE STROKE TPA GIVEN ORDERS TOGETHER. MRI PENDING IN AM, ALL LABS ORDERED, POST-TPA PROTOCOL IN ICU. I WILL CONTINUE TO FOLLOW. ALL STROKE MEASURES MET.
[2020-02-25 21:09] LABS: Glucose, Whole Blood 109 mg/dL (60-115)
[2020-02-25] MEDS: 0.9 % Sodium Chloride Flush 3 ML SYRINGE IVFLUSH (23:45)
[2020-02-26] VITALS (19 sets, daily range): BP systolic 119–151; BP diastolic 42–77; PULSE 86–109; RESP 12–22; TEMP 36.8–37.7; O2SAT 91–97; BMI 40.8
--- NOTE | 2020-02-26 | MR_ITS ---
EXAMINATION: BRAIN MRI WITHOUT CONTRAST CLINICAL INFORMATION: Stroke. COMPARISON: CT scan of the head 03/08/2020. TECHNIQUE: Multiplanar MR imaging of the brain was performed without contrast. FINDINGS: There are a few scattered nonspecific foci of T2 FLAIR signal hyperintensity within the periventricular white matter and wesly. No acute territorial infarct. No pathological magnetic susceptibility artifact. Intracranial vascular flow voids are grossly maintained. There is no intracranial mass effect or midline shift. No abnormal extra-axial collection. Lateral and third ventricles are normal. No hydrocephalus. Midline structures including the cervicomedullary junction are normal. No acute bone marrow signal changes. There is no mastoid middle ear effusion. No active paranasal sinus disease. Of note there are multiple cystic lesions visualized throughout both parotid glands, the etiology of which is uncertain on the basis of this examination. MR/MR head/brain wo con IMPRESSION: There are a few nonspecific signal changes involving the periventricular white matter and wesly. No acute territorial infarct or hemorrhage. Of note there are multiple nonspecific cystic lesions involving both parotid glands, the etiology of which is uncertain on the basis of this examination. Bilateral parotid cysts can be seen in the setting of benign lymphoepithelial lesions or Sjogren's syndrome.
[2020-02-26 05:48] LABS: Hemoglobin 11.3 g/dl (12.0-16.0); Mean Corpuscular Hemoglobin 25.7 pg (27.0-33.0)
[2020-02-26 05:50] LABS: Hematocrit 36.3 % (37-47); Mean Corpuscular HGB Conc 31.1 g/dl (31.0-35.0); Mean Corpuscular Volume 82.5 fL (80-98); Mean Platelet Volume 13.8 fL (9.4-12.3); PLT CLUMP 1
[2020-02-26 05:52] LABS: PLT ABN DIST 1
[2020-02-26 06:09] LABS: Platelet Count 225 X10*3/uL (160-400); White Blood Count 7.7 X10*3/uL (4.8-10.8)
[2020-02-26 06:17] LABS: Troponin-I High Sensitivity < 3.5 ng/L (<3.5-17.0)
[2020-02-26 06:19] LABS: Anion Gap 15 (12-20); Blood Urea Nitrogen 11 mg/dL (9-16); Calcium 8.2 mg/dL (8.4-10.2); Carbon Dioxide 22 mmol/L (22-29); Chloride 106 mmol/L (96-108); Cholesterol 186 mg/dL; Creatinine Clr Calc Pharmacy 83.9; Estimated Glomerular Filt Rate > 60; Glucose Random 116 mg/dL (60-115); HDL Cholesterol 74 mg/dL; LDL Cholesterol Calculated 91 mg/dl; Potassium 3.7 mmol/l (3.3-5.1); Sodium 139 mmol/L (135-145); Triglycerides 105 mg/dL
[2020-02-26 07:22] LABS: Glucose, Whole Blood 114 mg/dL (60-115)
[2020-02-26 11:15] LABS: Glucose, Whole Blood 87 mg/dL (60-115)
--- NOTE | 2020-02-26 11:24 | PM.CCPN ---
Subjective Subjective Date of Service: 02/26/20 Interval History: 69-year-old lady with underlying history of TIA, hypertension, VALERIANO on CPAP, Sjogren's syndrome admitted on 02/25/2020 with an acute CVA, status post tPA administration With improvement in her presenting symptoms of the left-sided facial droop and aphasia, being monitored in the intensive care unit. Physical Exam Vital Signs: Vital Signs: Last Vital Signs Temp 98.4 F 02/26/20 09:00 Pulse 98 02/26/20 10:54 Resp 19 02/26/20 10:54 BP 134/67 02/26/20 10:54 Pulse Ox 96 02/26/20 10:54 Body Mass Index 40.8 Const: General: no acute distress, alert and awake Orientation/consciousness: oriented to person, oriented to place and oriented to time Eyes: Sclerae: sclerae normal EOM: EOMs intact bilaterally Neck: Neck: Yes no lymphadenopathy, Yes trachea midline and Yes supple Resp: Effort & Inspection: normal respiratory effort and no respiratory distress Auscultation: clear to auscultation bilaterally Cardio: Rate: regular rate Rhythm: regular rhythm Heart sounds: no gallops, no murmurs and no rubs GI: Palpation (GI): Soft to palpation and Other GI palpation findings present ( Nontender) Auscultation: normal bowel sounds Neuro: General: oriented to person, oriented to place, oriented to time, moves all extremities, no focal motor deficits and other ( very mild expressive aphasia) Extrem: General: Yes no pedal edema, No clubbing and No cyanosis Objective Data Labs CBC & Chem 7: 02/26/20 05:21 02/26/20 05:21 Labs: Laboratory Results - last 24 hr 02/25/20 02/25/20 02/25/20 15:35 15:35 15:38 WBC RBC Hgb Hct MCV MCH MCHC RDW Plt Count MPV Immature Gran % (Auto) Neut % (Auto) Lymph % (Auto) [place] % (Auto) Eos % (Auto) Baso % (Auto) Lymph # (Auto) [place] # (Auto) Eos # (Auto) Baso # (Auto) Abs Immat Gran (auto) Absolute Neuts (auto) Absolute Nucleated RBC Nucleated RBC % (auto) PT Whole Blood PT 11.3 INR Whole Blood INR 0.9 APTT Sodium Potassium Chloride Carbon Dioxide Anion Gap BUN Creatinine Estim Creat Clear Calc Estimated GFR POC Glucose 116 H Random Glucose Calcium Magnesium 2.0 Total Bilirubin 0.3 Direct Bilirubin < 0.2 AST 18 ALT 17 Alkaline Phosphatase 106 Total Creatine Kinase Troponin I High Sens Total Protein 7.6 Albumin 4.4 Triglycerides Cholesterol LDL Cholesterol, Calc HDL Cholesterol Coronavirus (PCR) 02/25/20 02/25/20 02/25/20 15:38 15:38 15:38 WBC 8.5 RBC 4.84 Hgb 12.6 Hct 39.4 MCV 81.4 MCH 26.0 L MCHC 32.0 RDW 15.1 Plt Count 265 MPV 12.1 Immature Gran % (Auto) 0.2 Neut % (Auto) 74.5 H Lymph % (Auto) 17.2 L [place] % (Auto) 6.6 Eos % (Auto) 1.3 Baso % (Auto) 0.2 Lymph # (Auto) 1.5 [place] # (Auto) 0.6 Eos # (Auto) 0.1 Baso # (Auto) 0.0 Abs Immat Gran (auto) 0.02 Absolute Neuts (auto) 6.4 Absolute Nucleated RBC 0.060 H Nucleated RBC % (auto) 0.7 H PT 10.6 L Whole Blood PT INR 0.9 Whole Blood INR APTT 32.1 Sodium 140 Potassium 3.9 Chloride 104 Carbon Dioxide 23 Anion Gap 17 BUN 16 Creatinine 0.79 Estim Creat Clear Calc 85.9 Estimated GFR > 60 POC Glucose Random Glucose 99 Calcium 8.9 Magnesium Total Bilirubin Direct Bilirubin AST ALT Alkaline Phosphatase Total Creatine Kinase 71 Troponin I High Sens Total Protein Albumin Triglycerides Cholesterol LDL Cholesterol, Calc HDL Cholesterol Coronavirus (PCR) 02/25/20 02/25/20 02/25/20 15:38 16:09 21:05 WBC RBC Hgb Hct MCV MCH MCHC RDW Plt Count MPV Immature Gran % (Auto) Neut % (Auto) Lymph % (Auto) [place] % (Auto) Eos % (Auto) Baso % (Auto) Lymph # (Auto) [place] # (Auto) Eos # (Auto) Baso # (Auto) Abs Immat Gran (auto) Absolute Neuts (auto) Absolute Nucleated RBC Nucleated RBC % (auto) PT Whole Blood PT INR Whole Blood INR APTT Sodium Potassium Chloride Carbon Dioxide Anion Gap BUN Creatinine Estim Creat Clear Calc Estimated GFR POC Glucose 109 Random Glucose Calcium Magnesium Total Bilirubin Direct Bilirubin AST ALT Alkaline Phosphatase Total Creatine Kinase Troponin I High Sens < 3.5 Total Protein Albumin Triglycerides Cholesterol LDL Cholesterol, Calc HDL Cholesterol Coronavirus (PCR) NEGATIVE 02/26/20 02/26/20 02/26/20 05:21 05:21 05:21 WBC 7.7 RBC 4.40 Hgb 11.3 L Hct 36.3 L MCV 82.5 MCH 25.7 L MCHC 31.1 RDW 15.0 Plt Count 225 MPV 13.8 H Immature Gran % (Auto) Neut % (Auto) Lymph % (Auto) [place] % (Auto) Eos % (Auto) Baso % (Auto) Lymph # (Auto) [place] # (Auto) Eos # (Auto) Baso # (Auto) Abs Immat Gran (auto) Absolute Neuts (auto) Absolute Nucleated RBC 0.000 Nucleated RBC % (auto) 0.0 PT Whole Blood PT INR Whole Blood INR APTT Sodium Potassium Chloride Carbon Dioxide Anion Gap BUN Creatinine Estim Creat Clear Calc Estimated GFR POC Glucose Random Glucose Calcium Magnesium Total Bilirubin Direct Bilirubin AST ALT Alkaline Phosphatase Total Creatine Kinase Troponin I High Sens < 3.5 Total Protein Albumin Triglycerides Cancelled Cholesterol Cancelled LDL Cholesterol, Calc Cancelled HDL Cholesterol Cancelled Coronavirus (PCR) 02/26/20 02/26/20 02/26/20 05:21 07:17 11:11 WBC RBC Hgb Hct MCV MCH MCHC RDW Plt Count MPV Immature Gran % (Auto) Neut % (Auto) Lymph % (Auto) [place] % (Auto) Eos % (Auto) Baso % (Auto) Lymph # (Auto) [place] # (Auto) Eos # (Auto) Baso # (Auto) Abs Immat Gran (auto) Absolute Neuts (auto) Absolute Nucleated RBC Nucleated RBC % (auto) PT Whole Blood PT INR Whole Blood INR APTT Sodium 139 Potassium 3.7 Chloride 106 Carbon Dioxide 22 Anion Gap 15 BUN 11 Creatinine 0.78 Estim Creat Clear Calc 83.9 Estimated GFR > 60 POC Glucose 114 87 Random Glucose 116 H Calcium 8.2 L D Magnesium Total Bilirubin Direct Bilirubin AST ALT Alkaline Phosphatase Total Creatine Kinase Troponin I High Sens Total Protein Albumin Triglycerides 105 Cholesterol 186 LDL Cholesterol, Calc 91 HDL Cholesterol 74 Coronavirus (PCR) Progress Note: A&P Assessment and plan (1) Acute CVA (cerebrovascular accident): Status: Acute Assessment and Plan: Assessment: 69-year-old lady admitted with an acute CVA status post tPA with improvement of her presenting symptoms of the left-sided facial droop and aphasia Plan: Neuro: acute CVA status post tPA. Aphasia and facial droop significantly improved. Neurology service care appreciated. Continue with post tPA protocol care Cardiac: No acute issues. Pulmonary: No acute issues. Renal: No acute issues. Endo: No acute issues. GI: No acute issues. ID: No acute issues Heme/Onc: No acute issues. Psych: No acute issues. Miscellaneous: No acute issues. Prophylaxis: compression stockings Diet: pending swallow evaluation Critical care time spent: Time Spent With Patient Time: Total time spent is greater than 50% in coordination of care (as documented) at patient's floor/unit and/or counseling patient: Total time spent with greater than 50% in coordination of care (as documented) at patient's floor/unit and/or counseling patient:: 0
[2020-02-26] MEDS: 0.9 % Sodium Chloride Flush 3 ML SYRINGE IVFLUSH ×2 (11:55→20:35)
--- NOTE | 2020-02-26 13:00 | CA_ITS ---
Transthoracic Echocardiogram Patient (Last, First, Middle): Misty Boyle, Gender: Female Date of : 1950 Age: 69 Procedure Date: 02/26/2020 Procedure Type: Transthoracic Echocardiogram Location: ICU Height: 162.56 cm Weight: 107.5 kg BSA: 2.10 m2 Heart Rate: bpm BP: 119 / 50 mmHg Occasional Babysitter: ALEJO Referring MD: Efra Alexander Leaf Tinner: Nikko Molina MD Symptoms: stroke Study Quality: Fair ECG Rhythm: Sinus Conclusions: - 1. Normal LV systolic function with impaired relaxation filling pattern 2. Severe mitral annular calcification with normal cardiac valvular Doppler 3. Normal RV systolic pressure 4. No pericardial effusion Findings Left Ventricle Normal left ventricular size, thickness, and systolic function. The visually estimated ejection fraction is between 60-65%. Spectral Doppler is indicative of an impaired relaxation filling pattern. Right Ventricle Normal right ventricular cavity size and systolic function. Atria The left atrium is likely dilated. There is lipomatous hypertrophy of the interatrial septum. Interatrial shunt cannot be excluded. The right atrium is normal in size. Aortic Valve There is mild calcification of the aortic valve. There is no aortic valve stenosis. There is no aortic valve regurgitation. Mitral Valve There is moderate anterior and severe posterior mitral leaflet thickening. There is severe mitral annular calcification. There is trace mitral valve regurgitation. There is no mitral valve stenosis. Pulmonic Valve The pulmonic valve was not well visualized. Tricuspid Valve Likely normal tricuspid valve structure and function. There is trace tricuspid valve regurgitation. The right ventricular systolic pressure is normal. The right ventricular systolic pressure is 33 mmHg. There is no evidence of pulmonary hypertension. Great Vessels All visible segments of the aorta are normal in size. The pulmonary artery was not well visualized. Venous The inferior vena cava is normal in size and collapses greater than 50% with inspiration. Pericardium/Pleural There is no evidence of pericardial effusion. Prior Study Comparison No prior study available for comparison. Measurements 2D Linear Measurements IVSd: 1.15 0.6-0.9/0.6-1.0 cm LVIDd: 4.05 3.9-5.3/4.2-5.9 cm LVIDd Index: 1.93 2.4-3.2/2.2-3.1 cm/m2 LVIDs: 2.53 2.0-3.6 cm LVPWd: 1.02 0.7-1.1 cm Ao Root: 2.50 2.1-3.5 cm LA Diam: 4.80 2.7-3.8/3.0-4.0 cm LAIDs Index: 2.29 1.5-2.3 cm/m2 LV Mass: 181.18 67-162/88-224 g LV Mass Index: 86.28 43-95/49-115 g/m2 LVOT Diam: 2.10 3.0+(-)1.3 cm Mitral Valve MV VTI: 0.31 MV Pk Krishna: 1.41 MV Mn Krishna: 0.87 MV Pk Grad: 8.00 MV Mn Grad: 4.00 MV Pk E: 1.05 MV PK A: 1.38 MV Decel Time: 204.00 E/A: 0.80 E'Lateral: 10.80 E'Medial: 6.09 E/E' Med: 17.20 E/E' Lat: 9.70 PHT: 60.00 MVA PHT: 3.67 MVA Continuity: 2.98 Decel [place]: 5.13 Aortic Valve AoV Pk Krishna: 1.91 AoV Mn Krishna: 1.27 AoV VTI: 0.36 AoV Pk Grad: 15.00 Aov Mn Grad: 8.00 MUKUND Cont.VTI: 2.57 LVOT LVOT Pk Krishna: 1.11 LVOT Mn Krishna: 0.71 LVOT VTI: 0.27 LVOT Pk Grad: 5.00 LVOT Mn Grad: 2.00 LVOT Diam: 2.10 LVOT Area: 3.46 Diastolic Function MV Pk E: 1.05 MV Pk A: 1.38 E/A: 0.80 E'Medial: 6.09 E/E' Med: 17.20 E' Laterial: 10.80 E/E' Lat: 9.70 Tricuspid Valve TR Pk Krishna: 2.72 TR Pk Grad: 30.00 RA Press: 3.00 RVSP: 33.00 Great Vessels Aorta Ao Root-2D: 2.50 2.0-3.7 cm Ao Asc: 3.10 2.1-3.4 cm Pulmonary Valve PV Pk Krishna: 1.06 Peak PV Grad: 4.00 Updated in Other Vendor System with Status of Final Nikko Molina MD electronically signed on 02/26/2020 4:35:28 PM with status of Final
--- NOTE | 2020-02-26 17:40 | PM.EVENT ---
Event Note Date of Service: 02/26/2020 Event Note: Floor team note in brief S [place] [facility] [place] O vitals - last documented Gen - NAD CVS - s1s2 Lungs - Clear Abd - soft and nt/nt Neuro - non-focal, aaox3; no aphsia appreciated A/P 69 yo F treated with t-Pa for cva symptoms. MRI today ruled out any acute stroke. See report for full details. To discuss MRI results with Neurology tomorrow. Unclear if her symptoms related to acute CVA vs alternative diagnosis. Nonetheless, will hold off her home BP meds tonight. Additionally, hold off on initiating statin/aspirin until discussion with neurology completed. Resume her other chronic meds continue with neuro check remainder per ICU notes
[2020-02-26] MEDS: mycophenolate mofetiL 250 MG CAPSULE PO (20:35)
[2020-02-26] MEDS: Hydroxychloroquine Sulfate 200 MG TABLET PO (20:35)
[2020-02-26] MEDS: Gabapentin 100 MG CAPSULE PO (20:35)
[2020-02-26 20:58] LABS: Glucose, Whole Blood 117 mg/dL (60-115)
[2020-02-27] VITALS: BP 149/53; PULSE 99; RESP 18; TEMP 36.1; O2SAT 95
[2020-02-27 03:20] VITALS: BP 136/54; PULSE 95; RESP 18; TEMP 36.3; O2SAT 97
[2020-02-27] MEDS: Omeprazole 40 MG CAPSULE.DR PO (05:12)
[2020-02-27 07:08] LABS: Glucose, Whole Blood 114 mg/dL (60-115)
[2020-02-27 07:27] VITALS: BP 129/60; PULSE 95; RESP 20; TEMP 36.3; O2SAT 98
[2020-02-27] MEDS: 0.9 % Sodium Chloride Flush 3 ML SYRINGE IVFLUSH (08:56)
[2020-02-27] MEDS: Hydroxychloroquine Sulfate 200 MG TABLET PO (08:57)
[2020-02-27] MEDS: Venlafaxine HCl ER 75 MG CAP.ER.24H PO (08:57)
[2020-02-27] MEDS: mycophenolate mofetiL 250 MG CAPSULE PO (08:57)
--- NOTE | 2020-02-27 09:35 | PM.DS ---
DS: Providers Provider Date of admission: 02/25/20 16:45 Primary care physician: Aden Dinero MD Consults: 02/25/20 16:45 Consult to Neurology Routine Consulting Provider: Mary Pickens Reason for consultation: stroke 02/26/20 16:00 Consult to Hospitalist Routine Consulting Provider: Hospitalist Reason for consultation: IMC downgrade Has provider been notified: Yes DS: Summary Hospital Course Hospital Course: 69-year-old lady with underlying history of TIA, hypertension, VALERIANO on CPAP, Sjogren's syndrome who presentd to the ED on 02/25/2020 left sided facial droop and treated with tPA for acute CVA, status post tPA with complete resolution of symptoms. Wok up included CT head, CTA of head and neck and MRI of head all no showing acute stroke. It's therefore likely that she suffered TIA. At moment blood pressure is well controled. Lipid profile is unremarkable TG 105, Chol 186, LDL 91, HLD 74 so will give Lipitor 20 to try and give LDL around 70, and daily baby aspirin. Time Spent with Patient Time attestation: Total time spent providing and/or coordinating discharge services: Quality: Stroke Pt Provided Written Stroke Discharge Instructions: Patient given written information Physical Exam Vital Signs: Vital Signs: Last Vital Signs Temp 97.4 F 02/27/20 07:27 Pulse 95 02/27/20 07:27 Resp 20 02/27/20 07:27 BP 129/60 02/27/20 07:27 Pulse Ox 98 02/27/20 07:27 Body Mass Index 40.8 Constitutional Awake and Alert, No apparent distress Neck Supple, No lymphadenopathy Cardiovascular RRR, No M/R/G, S1 S2, No S3 S4, No pedal edema Respiratory Lungs clear, No respiratory distress Gastrointestinal Non tender, Non-distended Skin No rash Neurological Alert & oriented x3 Psychological Appropriate affect DS: Data Data Completed and Pending Labs on day of discharge: 02/25/20 15:31 XR chest 1V Stat 02/25/20 15:32 ECG 12 lead EKG Stat EKG Documentation DIRECTED CT angio head neck stroke Stat CT head for stroke Stat 02/25/20 15:35 Glucose, Whole Blood Routine Prothrombin Time Whole Bld POC Routine ~PT, ~INR - Anti Coag Clinic Routine 02/25/20 15:38 Basic Metabolic Panel Stat Complete Blood Count Auto Diff Stat Creatine Kinase Total Stat Liver Panel Stat Magnesium Stat Partial Thromboplastin Time Stat Prothrombin Time INR Stat Stroke Lab Use Stat Troponin-I High Sensitivity Stat 02/25/20 15:53 iohexoL 350 MG/ML [Omnipaque 350 MG/ML] 100 ml IV ONCE ONE 02/25/20 16:00 Alteplase [Activase] 90 mg IV ONCE ONE 02/25/20 16:03 Alteplase [Activase] 100 mg IV .STK-MED ONE 02/25/20 16:09 SARS COV2 PCR INHOUSE Stat 02/25/20 18:19 RT BiPAP/CPAP BEDTIME 02/25/20 21:05 Glucose, Whole Blood Routine 02/26/20 MR head/brain wo con Stat 02/26/20 05:21 Basic Metabolic Panel Routine Complete Blood Count no Diff Routine Lipid Panel Routine Troponin-I High Sensitivity Routine 02/26/20 07:17 Glucose, Whole Blood Routine 02/26/20 11:11 Glucose, Whole Blood Routine 02/26/20 13:00 CA echo transthoracic complete Routine 02/26/20 15:44 Transfer Order Routine 02/26/20 20:53 Glucose, Whole Blood Routine 02/27/20 07:04 Glucose, Whole Blood Routine Laboratory Last Values WBC 7.7 X10*3/uL (4.8-10.8) 02/26/20 05:21 RBC 4.40 X10*6/uL (4.20-5.50) 02/26/20 05:21 Hgb 11.3 g/dl (12.0-16.0) L 02/26/20 05:21 Hct 36.3 % (37-47) L 02/26/20 05:21 MCV 82.5 fL (80-98) 02/26/20 05:21 MCH 25.7 pg (27.0-33.0) L 02/26/20 05:21 MCHC 31.1 g/dl (31.0-35.0) 02/26/20 05:21 RDW 15.0 % (11.0-16.0) 02/26/20 05:21 Plt Count 225 X10*3/uL (160-400) 02/26/20 05:21 MPV 13.8 fL (9.4-12.3) H 02/26/20 05:21 Immature Gran % (Auto) 0.2 % (0.0-0.4) 02/25/20 15:38 Neut % (Auto) 74.5 % (45-73) H 02/25/20 15:38 Lymph % (Auto) 17.2 % (20-40) L 02/25/20 15:38 [place] % (Auto) 6.6 % (2-11) 02/25/20 15:38 Eos % (Auto) 1.3 % (0-4) 02/25/20 15:38 Baso % (Auto) 0.2 % (0-2) 02/25/20 15:38 Lymph # (Auto) 1.5 X10*3/uL (1.2-4.9) 02/25/20 15:38 [place] # (Auto) 0.6 X10*3/uL (0.1-1.2) 02/25/20 15:38 Eos # (Auto) 0.1 X10*3/uL (0.0-0.4) 02/25/20 15:38 Baso # (Auto) 0.0 X10*3/uL (0.0-0.2) 02/25/20 15:38 Abs Immat Gran (auto) 0.02 X10*3/uL (0.00-0.03) 02/25/20 15:38 Absolute Neuts (auto) 6.4 X10*3/uL (2.0-8.3) 02/25/20 15:38 Absolute Nucleated RBC 0.000 X10*3/uL (0.0-0.012) 02/26/20 05:21 Nucleated RBC % (auto) 0.0 /100WBC (0.0-0.2) 02/26/20 05:21 PT 10.6 SEC (10.8-13.0) L 02/25/20 15:38 Whole Blood PT 11.3 sec (11.1-13.5) 02/25/20 15:35 INR 0.9 (0.9-1.1) 02/25/20 15:38 Whole Blood INR 0.9 (0.9-1.1) 02/25/20 15:35 APTT 32.1 SEC (24.1-38.0) 02/25/20 15:38 Sodium 139 mmol/L (135-145) 02/26/20 05:21 Potassium 3.7 mmol/l (3.3-5.1) 02/26/20 05:21 Chloride 106 mmol/L (96-108) 02/26/20 05:21 Carbon Dioxide 22 mmol/L (22-29) 02/26/20 05:21 Anion Gap 15 (12-20) 02/26/20 05:21 BUN 11 mg/dL (9-16) 02/26/20 05:21 Creatinine 0.78 mg/dL (0.5-1.4) 02/26/20 05:21 Estim Creat Clear Calc 83.9 02/26/20 05:21 Estimated GFR > 60 02/26/20 05:21 POC Glucose 114 mg/dL (60-115) 02/27/20 07:04 Random Glucose 116 mg/dL (60-115) H 02/26/20 05:21 Calcium 8.2 mg/dL (8.4-10.2) L D 02/26/20 05:21 Magnesium 2.0 mg/dL (1.6-2.6) 02/25/20 15:38 Total Bilirubin 0.3 mg/dL (0.0-1.0) 02/25/20 15:38 Direct Bilirubin < 0.2 mg/dL (0.0-0.5) 02/25/20 15:38 AST 18 U/L (5-31) 02/25/20 15:38 ALT 17 U/L (0-31) 02/25/20 15:38 Alkaline Phosphatase 106 U/L (39-117) 02/25/20 15:38 Total Creatine Kinase 71 U/L (26-140) 02/25/20 15:38 Troponin I High Sens < 3.5 ng/L (<3.5-17.0) 02/26/20 05:21 Total Protein 7.6 g/dL (6.5-8.0) 02/25/20 15:38 Albumin 4.4 g/dL (3.5-5.0) 02/25/20 15:38 Triglycerides 105 mg/dL 02/26/20 05:21 Triglycerides Cancelled 02/26/20 05:21 Cholesterol 186 mg/dL 02/26/20 05:21 Cholesterol Cancelled 02/26/20 05:21 LDL Cholesterol, Calc 91 mg/dl 02/26/20 05:21 LDL Cholesterol, Calc Cancelled 02/26/20 05:21 HDL Cholesterol 74 mg/dL 02/26/20 05:21 HDL Cholesterol Cancelled 02/26/20 05:21 Coronavirus (PCR) NEGATIVE (Negative) 02/25/20 16:09 Discharge Plan Discharge Anticipated Discharge Date/Time: 02/27/20 09:31 Patient Disposition: Home, Self-Care Referrals: Aden Dinero MD [Primary Care Provider] - Discharge Medications: New aspirin 81 mg tablet,delayed release (DR/EC) 81 mg PO DAILY Qty: 90 RF: 0 atorvastatin [Lipitor] 20 mg tablet 20 mg PO BEDTIME Qty: 30 RF: 0 Continued amlodipine 10 mg tablet 1 tab PO DAILY RF: 0 gabapentin 100 mg capsule 1 cap PO BEDTIME RF: 0 hydroxychloroquine 200 mg tablet 1 tab PO BID RF: 0 pilocarpine HCl 5 mg tablet 2 tab PO TID RF: 0 venlafaxine 75 mg tablet 1 tab PO DAILY RF: 0 mycophenolate mofetil 250 mg capsule 1 cap PO BID RF: 0 omeprazole 40 mg capsule,delayed release(DR/EC) 1 cap PO DAILY RF: 0 Discharge Orders: Discharge Order (Routine); Ordered 02/27/20 Ordered By: Zay Baker Activity on Discharge: As tolerated Visit Report Forms: Patient Portal Discharge page Care Plan Goals: Return to baseline functioning status Health Concerns: no new concern now, but concern of possible recuurent symptoms in future Plan of Treatment: Follow up with your Doctor in a week, take all your medications as directed
--- NOTE | 2020-02-27 10:26 | MHC.CM.PN ---
dc plan home no servcekeenan pt lives with who will drive her home when dcd
--- NOTE | 2020-02-27 10:43 | PM.NEUROPN ---
Subjective Subjective Date of Service: 02/27/20 Interval History: She is back to her baseline. There is no facial or limb weakness and her speech seems to be normal. Her MRI did not show any acute infarct. There is mild nonspecific microvascular changes. There are bilateral parotid cysts consistent with a Sj?gren's disease Physical Exam Vital Signs: Vital Signs: Last Vital Signs Temp 97.4 F 02/27/20 07:27 Pulse 95 02/27/20 07:27 Resp 20 02/27/20 07:27 BP 129/60 02/27/20 07:27 Pulse Ox 98 02/27/20 07:27 Body Mass Index 40.8 Const: General: cooperative, comfortable, no acute distress, well developed, alert and awake Nutritional Appearance: well nourished Orientation/consciousness: oriented to person, oriented to place and oriented to time Limitations: no limitations HENMT: Head: Yes normal to inspection, Yes normocephalic and Yes atraumatic Ears: hearing grossly normal bilaterally General nose exam: Normal external nose present Face and sinus: Yes normal facial exam Mouth: Normal oral and palatal mucosa present Eyes: General: appearance normal, both eyes and all related structures Visual Villatoro: normal visual villatoro by confrontation Alignment and Position: alignment normal Periorbital: periorbital findings normal Eyelids: Yes eyelids normal Conjunctivae: conjunctivae normal Sclerae: sclerae normal Corneas: corneas normal Pupils: Equal, round and reactive pupils present and Pupil accommodation reflex normal EOM: EOMs intact bilaterally Direct Ophthalmoscopy: normal light reflex Neck: Neck: Yes normal visual inspection, Yes full ROM and Yes no meningeal signs Thyroid: Thyroid normal Carotids: normal carotid upstroke and bounding pulses Chest: Chest palpation & inspection: normal inspection of the chest Resp: Effort & Inspection: normal respiratory effort Auscultation: clear to auscultation bilaterally Cardio: Rate: regular rate Rhythm: regular rhythm Heart sounds: S1 normal heart sound present and S2 normal heart sound present Peripheral pulses: Peripheral pulses 2+ throughout GI: Inspection: Yes normal to inspection Percussion: Yes normal to percussion Auscultation: normal bowel sounds Rectal Exam - Female: deferred Back/Spine/Pelvis: Cervical Spine: normal cervical lordosis and cervical ROM normal Thoracic/Lumbar Spine: thoracic and lumbar spine normal to inspection Skin: General skin exam: no rashes or lesions noted Neuro: General: oriented to person, oriented to place, oriented to time, gait normal, tone normal, moves all extremities, Normal light touch and pain sensation, no meningeal signs, no focal motor deficits, CN's II-XI intact bilaterally, normal sensation to monofilament and deep tendon reflexes 2+ bilaterally Cranial nerves: Yes CN's II-XII intact bilaterally, Yes Equal, round and reactive pupils present, Yes Bilaterally intact EOM present, Yes Nystagmus not present, Yes Normal facial strength present, Yes Midline tongue present, Yes Normal gag reflex present, Yes Symmetric palate elevation present, Yes Normal hearing present and Yes Ability to bilaterally rotate head present Cognition (Neuro): normal cognition Speech: Other speech findings present (Neuro) Gait exam (Neuro): Normal gait present Motor exam (neuro): 5/5 motor strength present throughout, Pronator motor function not present, no tremor noted, no asterixis, Motor fasciculations not present, Normal motor muscle tone present throughout and Motor abnormalities not present Sensory Exam: Bilaterally intact graphesthesia Deep tendon reflexes (DTR's): Right triceps reflex intensity grade: 2+, Left triceps reflex intensity grade: 2+, Rt Biceps (C5, C6): 2+, Left biceps reflex intensity grade: 2+, Right brachioradialis reflex intensity grade: 2+, Left brachioradialis reflex intensity grade: 2+, Right patellar reflex intensity grade: 2+, Left patellar reflex intensity grade: 2+, Right ankle reflex intensity grade: 2+ and Left ankle reflex intensity grade: 2+ Plantar Reflex Responses: downgoing: right, left and bilateral Coordination: [id number] test normal, [id number] test normal, tandem gait normal and Romberg test negative Pupils: Normal pupillary reactivity/response: bilateral Extrem: General: Yes normal to inspection, Yes normal exam except as noted and Yes no pedal edema Psych: Appearance: grossly normal Mental Status: mental status grossly normal Speech and movement: Normal speech and movement present and Clear speech present Affect: normal affect Attitude: cooperative Thought process: Normal thought process present Objective Data Labs CBC & Chem 7: 02/26/20 05:21 02/26/20 05:21 Labs: Laboratory Results - last 24 hr 02/26/20 02/26/20 02/27/20 11:11 20:53 07:04 POC Glucose 87 117 H 114 Progress Note: A&P Assessment and plan (1) Acute CVA (cerebrovascular accident): Status: Acute Assessment and Plan: Her symptoms have resolved and she is back to her baseline. My discharge diagnosis would be a TIA. She has no evidence of acute stroke on MRI and no evidence of significant occlusive disease on the CTA neither in the neck or intracranial circulation. She can be discharged on aspirin 81 mg a day and atorvastatin 20 mg. Fall Risk Details Current Medications: Current Medications Generic Name Dose Route Start Last Admin Trade Name Jamia PRN Reason Stop Dose Admin Acetaminophen 650 mg 02/26/20 18:04 Acetaminophen 325 Mg Tablet PO Q6H PRN Pain and Fever Gabapentin 100 mg 02/26/20 21:00 02/26/20 20:35 Gabapentin 100 Mg Capsule PO 100 mg BEDTIME CHLOE Administration Hydroxychloroquine Sulfate 200 mg 02/26/20 21:00 02/27/20 08:57 Hydroxychloroquine Sulfate 200 Mg Tablet PO 200 mg BID CHLOE Administration Mycophenolate Mofetil 250 mg 02/26/20 21:00 02/27/20 08:57 Mycophenolate Mofetil 250 Mg Capsule PO 250 mg BID CHLOE Administration Non-Formulary Medication 2 tab 02/26/20 21:00 Pilocarpine Hcl PO TID CHLOE Omeprazole 40 mg 02/27/20 06:30 02/27/20 05:12 Omeprazole 40 Mg Capsule. PO 40 mg DAILY@0630 [facility] Administration Pharmacy Consult 1 each 02/25/20 16:03 Consult Rx Perform Med Rec MISCELLANE ONCE PRN Consult order Sodium Chloride 3 ml 02/26/20 00:00 02/27/20 08:56 0.9 % Sodium Chloride Flush 3 Ml Syringe IVFLUSH 3 ml QSHIFT CHLOE Administration Venlafaxine HCl 75 mg 02/27/20 09:00 02/27/20 08:57 Venlafaxine Hcl Er 75 Mg Cap.Er.24h PO 75 mg DAILY CHLOE Administration Time Spent With Patient Time: Total time spent is greater than 50% in coordination of care (as documented) at patient's floor/unit and/or counseling patient: Time with patient: 15 - 24 minutes
[2020-02-27 11:14] VITALS: BP 119/64; PULSE 91; RESP 20; TEMP 36.8; O2SAT 95
--- NOTE | 2020-02-27 12:14 | MHC.CM.PN ---
pt dcd home no servceis
== END 2020-02-27 14:00 | disposition home or self-care (01) | DRG 62 ==
LOC: HO.ED 16:36 → HO.ICU 17:00 → HO.IMC 02-26 16:01
PROVIDERS: Family Medicine; Internal Medicine Pulmonary Disease; Admitting Provider Anesthesiology; Emergency Provider Emergency Medicine; PCP Internal Medicine; Visit Provider Internal Medicine
DX: I63.9 Cerebral infarction, unspecified (principal); Z68.41 Body mass index [BMI] 40.0-44.9, adult; R29.810 Facial weakness; K21.9 Gastro-esophageal reflux disease without esophagitis; R29.703 NIHSS score 3; R47.1 Dysarthria and anarthria; E66.9 Obesity, unspecified; M35.00 Sjogren syndrome, unspecified; G47.33 Obstructive sleep apnea (adult) (pediatric); Z86.73 Personal history of transient ischemic attack (TIA), and cerebral infarction without residual deficits; Z99.89 Dependence on other enabling machines and devices; Z88.5 Allergy status to narcotic agent; Z79.82 Long term (current) use of aspirin; Z79.899 Other long term (current) drug therapy
CPT/HCPCS: 36415; 70450; 70496; 70498; 70551; 71045; 80048; 80061; 80076; 82550; 82947; 83735; 84484; 85025; 85027; 85610; 85730; 92507; 92523; 92610; 93005; 93306; 94660; 97161; 97165; 99223; 99232; 99285; 99291; J2997; Q9967; U0003

== ENCOUNTER 2022-01-14 10:13 | Emergency (ER) | payer MEDICARE, SELFPAY ==
--- NOTE | ~2022-01-14 | MR_ITS ---
MRI OF THE BRAIN WITHOUT IV CONTRAST INDICATION: Question CVA. Right eye droop. COMPARISON: Head CT January 14, 2022 and brain MRI February 26, 2020. TECHNIQUE: Multiplanar multisequence MR imaging of the brain was obtained without IV contrast. FINDINGS: There is no hydrocephalus, extra-axial surface collection, or herniation. The major flow voids at the skull base are preserved. There is no acute infarct on diffusion-weighted imaging. There is no intracranial hemorrhage on the gradient recalled echo acquisition. The midline structures are normal. The cerebellar tonsils are normally positioned. The cerebellum and brainstem are normal. The craniocervical junction is normal. Osseous marrow signal intensity is homogenous. The visualized soft tissues are unremarkable. Innumerable cysts/nodules throughout the parotid glands bilaterally remain unchanged with differential considerations again including benign lymphoepithelial cysts or the sequela of Sjogren's syndrome. MR/MR head/brain wo con IMPRESSION: - No acute intracranial findings. No acute infarcts. - There is mild chronic microangiopathy. - Innumerable cysts/nodules throughout the parotid glands bilaterally remain unchanged with differential considerations again including benign lymphoepithelial cysts or the sequela of Sjogren's syndrome.
--- NOTE | ~2022-01-14 | CT_ITS ---
EXAMINATION: CT HEAD WITHOUT CONTRAST (STROKE PROTOCOL) CLINICAL INFORMATION: Stroke protocol. Right eye droop. COMPARISON: Previous brain MRI head CT and head CTA February 2020 TECHNIQUE: Contiguous axial imaging was performed from the skull base to vertex without intravenous administration of contrast. This CT examination was performed using dose optimization techniques as appropriate, variously including the following: *Automated exposure control *Adjustment of mA and/or kV according to patient size (this includes techniques or standardized protocols for targeted exams where dose is matched to indication/reason for exam; i.e. extremities or head) *Use of iterative reconstruction technique DLP: 684 mGy-cm FINDINGS: There is no evidence of an extra-axial collection. There is no evidence of intra-axial or extra-axial hemorrhage. The ventricles and extra-axial CSF spaces are appropriate. Stevens-white matter differentiation is normal. No mass, mass effect or infarct is seen. Review of bone windows is normal. Visualized paranasal sinuses, mastoid air cells and middle ears are clear. There are innumerable small bilateral parotid gland calcifications and small cystic lesions. The largest measures 1 x 1.5 cm in the superficial lobe of the right gland. This does not appear appreciably changed from previous exams. CT/CT head for stroke IMPRESSION: No acute intracranial pathology. Stable appearance to the parotid glands with multiple small calcifications and cystic areas. This critical result was discussed with Sharon Pang at 1049 hours on 01/14/2022. It was ascertained that the content and urgency of the report was understood at the time of direct communication.
[2022-01-14 10:18] VITALS: BP 152/78; PULSE 82; RESP 18; TEMP 36.6; O2SAT 98; BMI 36.0
--- NOTE | 2022-01-14 10:22 | ECG_ITS ---
Test Reason : stroke like symptoms Blood Pressure : / mmHG Vent. Rate : 078 BPM Atrial Rate : 078 BPM P-R Int : 140 ms QRS Dur : 078 ms QT Int : 386 ms P-R-T Axes : 023 -06 013 degrees QTc Int : 440 ms Normal sinus rhythm Septal infarct , age undetermined Abnormal ECG When compared with ECG of 25-FEB-2020 15:29, Septal infarct is now Present QT has shortened Heart rate has decreased Referred By: Generic ED Physician Electronically Signed By:HARJEET ARORA
--- NOTE | 2022-01-14 10:44 | ED_ITS ---
HPI - Neuro Symptoms/Deficit General Chief Complaint: Stroke Stated Complaint: sent from doctors, possible mini stroke Time Seen by Provider: 01/14/22 10:27 Source: patient Mode of arrival: ambulatory Limitations: no limitations History of Present Illness HPI Narrative: Patient reports onset of symptoms at 914. Reports that she got out of the shower and felt a pulling sensation to the left side of her face particularly to the left eye. Reports a history of feeling similar in the past approximately 2 years ago when she had a strole. Prior to 914, she had no complaints. Denies anticoagulants. Denies headache, vision changes, neck pain, neck stiffness ear pain chest pain palpitations, shortness breath, difficulty breathing, vomiting, abdominal pain, dysuria, urinary frequency, numbness or tingling of the extremities, weakness, impaired gait, impaired speech, impaired swallowing. Related Data Home Medications Medication Instructions Recorded Confirmed amlodipine 10 mg tablet 1 tab PO DAILY 02/25/20 02/25/20 gabapentin 100 mg capsule 1 cap PO BEDTIME 02/25/20 02/25/20 hydroxychloroquine 200 mg tablet 1 tab PO BID 02/25/20 02/25/20 mycophenolate mofetil 250 mg 1 cap PO BID 02/25/20 02/25/20 capsule omeprazole 40 mg capsule,delayed 1 cap PO DAILY 02/25/20 02/25/20 release pilocarpine HCl 5 mg tablet 2 tab PO TID 02/25/20 02/25/20 venlafaxine 75 mg tablet 1 tab PO DAILY 02/25/20 02/25/20 Previous Rx's Medication Instructions Recorded aspirin 81 mg tablet,delayed 81 mg PO DAILY #90 tabs 02/27/20 release atorvastatin 20 mg tablet (Lipitor) 20 mg PO BEDTIME #30 tabs 02/27/20 Allergies Allergy/AdvReac Type Severity Reaction Status Date / Time morphine [MORPHINE] Allergy Unknown ITCH Verified 02/26/20 11:17 From OXYCONTIN Allergy Unknown ITCH Uncoded 01/04/20 16:53 Review of Systems Review of Systems: Constitutional: No weight loss. No fever. No chills. No weakness. No fatigue. Eye: No swelling. No redness. Positive eye drooping ENT: No sore throat. No rhinorrhea. No nasal congestion. No difficulty swallowing. Skin: No rash. No itching. Cardiovascular: No chest pain. No chest pressure. No palpitations. No pedal edema. Respiratory: No shortness of breath. No cough. No sputum production. Gastrointestinal: No anorexia. No nausea. No vomiting. No diarrhea. No abdominal pain. No blood in stool. Genitourinary: No burning micturition. No urinary frequency. No incontinence. Neurologic: No headache. No dizziness. No pre-syncope/ syncope. No unilateral w eakness. No ataxia. No numbness. No tingling. No change in bowel or bladder control. Musculoskeletal: No muscle pain. No back pain. No joint pain. No stiffness. Hematologic: No bleeding. No bruising. Lymphatics: No enlarged lymph nodes. Psychiatric:No depression. No anxiety. Endocrine: No reports of sweating. No cold or heat intolerance. No polyuria. No polydipsia. Yes all other systems are reviewed and are negative FORMERLY [facility], [facility] Past Medical History Attestation statement: The following information was validated with the patient. 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 Sjogrens syndrome Sleep apnea TIA (transient ischemic attack) TIA (transient ischemic attack) Surgical History H/O parathyroidectomy History of lung biopsy S/P cholecystectomy Social History Social History Household Members: Spouse Housing: House Do you presently have visiting nurse or other home services: No Patient Tobacco Use Status: Never used Tobacco Use of substances other than those prescribed or required for medical reasons: No Advance Directives: No service: No Physical Exam Vital Signs: Vital Signs: Last Vital Signs Temp 98 F 01/14/22 10:18 Pulse 71 01/14/22 14:04 Resp 16 01/14/22 14:04 BP 149/70 H 01/14/22 14:04 Pulse Ox 98 01/14/22 14:04 O2 Del Method 01/14/22 14:04 BMI result Body Mass Index 36.0 Appearance: Alert.?Oriented to person, place and time. No acute distress.?Normal affect. Eyes: Pupils equal, round and reactive to light.?Ptosis left eye. EOMi. no nystagmus ENT: Pharynx normal.??TM normal bilaterally Neck: Normal inspection.? Neck supple.?? CVS: Heart sounds normal. Normal heart rate and rhythm.? Pulses normal.?? Respiratory: No respiratory distress.? Lung sounds clear to auscultation bilaterally?? Abdomen: Soft and non-tender. Normoactive bowel sounds. ? Skin: Skin warm and dry.? Normal skin color.? Normal skin turgor.?? Extremities: No lower extremity edema.? No calf ttp? Neuro: Focal palsy to left eye with extraocular movements intact, smile is symmetric, tongue is midline, eyebrow is innervated, smile line present on left, normal sensory observed, normal coordination observed. Level of consciousness: Appropriate for age. Motor strength: right upper extremity 5 /5, left upper extremity 5 /5, right lower extremity 5 /5, left lower extremity 5 /5.?Speech: Normal, Gait: Normal, Ayfyjx-vf-rioy test: Normal, Wejv-uf-ofgr test: Normal. Course Course Course Narrative: Patient is a 71-year-old female history of cataracts, GERD, Sjogrens, obstructive sleep apnea, TIA. NIH stroke score 1 for minor facial palsy, symptoms are non debilitating and mild, not a candidate for tPa. Overall she is well-appearing. Vital signs stable. Will obtain CBC to evaluate for kimber kocytosis/ anemia, CMP to evaluate for abnormal electrolytes /abnormal renal function/ abnormal hepaticfunction, coagulation studies. Reevaluation(s) Reevaluation #1: Spoke with Radiology Dr. Oro, no acute findings on CT. Will obtain MRI for further evaluation. Patient updated on plan of care. Time: 10:50 Reevaluation #2: MRI reveals no acute intracranial findings no acute infarcts. Innumerable cysts throughout the parotid glands bilaterally which is unchanged from prior imaging. Patient reports subjective improvement of the eye drooping though not completely resolved at this time. Discussed these findings with patient. Does not appear to have ocular infectious process. Additional potential causes of the ptosis may be myasthenia gravis, will trial ice pack testing. Time: 13:09 Reevaluation #3: Significant improvement and the ptosis after ice pack test. Spoke with neurology, Dr. Whitaker, will order acetylcholine Antibody titers; blocking, binding, modulating, and patient will follow-up out patient with Neurology. Reviewed worrisome signs and symptoms the patient should return back to the emergency department for. All questions were answered. Patient discharged home in stable condition. Time: 13:46 MDM - Neuro Symptoms/Deficit Medical Records Attestation: I reviewed the patient's medical records. Lab Data Attestation: I reviewed the patient's lab results. Result diagrams: 01/14/22 11:47 01/14/22 11:47 Labs: Lab Results 01/14/22 01/14/22 01/14/22 Range/Units 11:35 11:47 11:47 WBC 6.2 (4.8-10.8) X10*3/uL RBC 5.21 (4.20-5.50) X10*6/uL Hgb 13.7 (12.0-16.0) g/dl Hct 44.1 (37.0-47.0) % MCV 84.6 (80.0-98.0) fL MCH 26.3 L (27.0-33.0) pg MCHC 31.1 (31.0-35.0) g/dl RDW 17.9 H (11.0-16.0) % Plt Count 213 (160-400) X10*3/uL MPV 11.9 (9.4-12.3) fL Immature Gran % (Auto) 0.3 (0.0-0.4) % Neut % (Auto) 75.3 H (45-73) % Lymph % (Auto) 16.2 L (20-40) % [place] % (Auto) 6.6 (2-11) % Eos % (Auto) 1.1 (0-4) % Baso % (Auto) 0.5 (0-2) % Lymph # (Auto) 1.0 L (1.2-4.9) X10*3/uL [place] # (Auto) 0.4 (0.1-1.2) X10*3/uL Eos # (Auto) 0.1 (0.0-0.4) X10*3/uL Baso # (Auto) 0.0 (0.0-0.2) X10*3/uL Abs Immat Gran (auto) 0.02 (0.00-0.03) X10*3/uL Absolute Neuts (auto) 4.6 (2.0-8.3) x10*3/uL Absolute Nucleated RBC 0.000 (0.0-0.012) X10*3/uL Nucleated RBC % (auto) 0.0 (0.0-0.2) /100WBC PT (10.0-13.1) SEC INR (0.9-1.1) APTT (26.0-36.4) SEC Sodium 141 (135-145) mmol/L Potassium 4.4 (3.3-5.1) mmol/L Chloride 105 (96-108) mmol/L Carbon Dioxide 19 L (22-29) mmol/L Anion Gap 21 H (12-20) BUN 12 (9-16) mg/dL Creatinine 0.85 (0.5-1.4) mg/dL Estim Creat Clear Calc 69.9 Estimated GFR > 60 POC Glucose 81 (60-115) mg/dL Random Glucose 89 (60-115) mg/dL Calcium 9.4 D (8.4-10.2) mg/dL 01/14/22 Range/Units 12:57 WBC (4.8-10.8) X10*3/uL RBC (4.20-5.50) X10*6/uL Hgb (12.0-16.0) g/dl Hct (37.0-47.0) % MCV (80.0-98.0) fL MCH (27.0-33.0) pg MCHC (31.0-35.0) g/dl RDW (11.0-16.0) % Plt Count (160-400) X10*3/uL MPV (9.4-12.3) fL Immature Gran % (Auto) (0.0-0.4) % Neut % (Auto) (45-73) % Lymph % (Auto) (20-40) % [place] % (Auto) (2-11) % Eos % (Auto) (0-4) % Baso % (Auto) (0-2) % Lymph # (Auto) (1.2-4.9) X10*3/uL [place] # (Auto) (0.1-1.2) X10*3/uL Eos # (Auto) (0.0-0.4) X10*3/uL Baso # (Auto) (0.0-0.2) X10*3/uL Abs Immat Gran (auto) (0.00-0.03) X10*3/uL Absolute Neuts (auto) (2.0-8.3) x10*3/uL Absolute Nucleated RBC (0.0-0.012) X10*3/uL Nucleated RBC % (auto) (0.0-0.2) /100WBC PT 10.8 (10.0-13.1) SEC INR 0.9 (0.9-1.1) APTT 34.4 (26.0-36.4) SEC Sodium (135-145) mmol/L Potassium (3.3-5.1) mmol/L Chloride (96-108) mmol/L Carbon Dioxide (22-29) mmol/L Anion Gap (12-20) BUN (9-16) mg/dL Creatinine (0.5-1.4) mg/dL Estim Creat Clear Calc Estimated GFR POC Glucose (60-115) mg/dL Random Glucose (60-115) mg/dL Calcium (8.4-10.2) mg/dL Imaging Data CT scan - head: Radiologist's impression: CT/CT head for stroke IMPRESSION: No acute intracranial pathology. Stable appearance to the parotid glands with multiple small calcifications and cystic areas. ? This critical result was discussed with Sharon Pang at 1049 hours on 01/14/2022. It was ascertained that the content and urgency of the report was understood at the time of direct communication. MRI - head: Radiologist's impression: MR/MR head/brain wo con IMPRESSION: - No acute intracranial findings. No acute infarcts. ? - There is mild chronic microangiopathy. ? - Innumerable cysts/nodules throughout the parotid glands bilaterally remain unchanged with differential considerations again including benign lymphoepithelial cysts or the sequela of Sjogren's syndrome. ECG Data Attestation: I personally reviewed and interpreted this ECG as follows: ECG interpretation date: 01/14/22 Interpretation: Rate: 78 Rhythm:? Normal sinus rhythm [place]:? Normal Normal P waves.? Normal RAQUEL.?? Normal QRS complex.?? ST T wave :? No ST elevation, no ST depression? qTC: 440 prior studies:? February 2020 The study has been interpreted contemporaneously by me. NIH Stroke Scale Internal: Initial- Upon Arrival Level of Consciousness: Alert Level of Consciousness Questions: Answers both questions correctly Level of Consciousness Commands: Performs both tasks correctly Best Gaze: Normal Visual: No visual loss Facial Palsy: Minor paralyis (Left eye) Motor Arm (Right): No drift Motor Arm (Left): No drift Motor Leg (Right): No drift Motor Leg (Left): No drift Limb Ataxia: Absent Sensory: Normal Best Language: No aphasia Dysarthia: Normal Extinction and Inattention: No abnormality Score: 1 Critical Care Time Critical Care Time Critical Care Time: Yes Total Critical Care Time: 35 Attestation: I personally attest to this critical care time spent taking care of the patient exclusive of all other billable procedures was approximately 35 minutes including initial evaluation of patient, ordering tests, x-ray interpretation, EKG interpretation, medical consultation, documentation, re-evaluation. Discharge Plan Discharge Clinical Impression: Ptosis Qualifiers: Laterality: left Qualified Code(s): H02.402 - Unspecified ptosis of left eyelid Patient Disposition: Home, Self-Care Instructions: Myasthenia Gravis (ED), Ptosis (ED) Additional Instructions: CT and MRI today revealed no findings concerning for stroke. As we discussed, please return to the emergency department with any new or worsening symptoms or concerns. We have sent blood testing for myasthenia gravis as we discussed, please contact Neurology office to arrange for outpatient follow-up. Contact your primary care provider to arrange for follow-up as well Prescriptions: No Action amlodipine 10 mg tablet 1 tab PO DAILY gabapentin 100 mg capsule 1 cap PO BEDTIME hydroxychloroquine 200 mg tablet 1 tab PO BID pilocarpine HCl 5 mg tablet 2 tab PO TID venlafaxine 75 mg tablet 1 tab PO DAILY mycophenolate mofetil 250 mg capsule 1 cap PO BID Rx Instructions: 2 capsules morning, 1 capsule at night omeprazole 40 mg capsule,delayed release(DR/EC) 1 cap PO DAILY aspirin 81 mg tablet,delayed release (DR/EC) 81 mg PO DAILY Qty: 90 0RF atorvastatin [Lipitor] 20 mg tablet 20 mg PO BEDTIME Qty: 30 0RF Referrals: Aden Dinero MD [Primary Care Provider] - Sharita Whitaker MD [Physician] - (? myasthenia gravis) Interventions: ED Discharge Assessment Last Done: 01/14/22 14:48 Discharge Date/Time: 01/14/22 14:49
[2022-01-14 11:24] VITALS: BP 146/73; PULSE 68; RESP 10
[2022-01-14 11:40] LABS: Glucose, Whole Blood 81 mg/dL (60-115)
[2022-01-14 11:51] LABS: MANUAL DIFF FLAG NO
--- NOTE | 2022-01-14 11:51 | PC.NURSE ---
pt to mri. phlebotomy at bedside for blood draw.
[2022-01-14 11:57] LABS: Basophils Percent Auto 0.5 % (0-2); Eosinophils Absolute Auto 0.1 X10*3/uL (0.0-0.4); Eosinophils Percent Auto 1.1 % (0-4); Hematocrit 44.1 % (37.0-47.0); Hemoglobin 13.7 g/dl (12.0-16.0); Imm Gran Abs Auto 0.02 X10*3/uL (0.00-0.03); Imm Gran Pct Auto 0.3 % (0.0-0.4); Lymphocytes Percent Auto 16.2 % (20-40); Mean Corpuscular HGB Conc 31.1 g/dl (31.0-35.0); Mean Corpuscular Hemoglobin 26.3 pg (27.0-33.0); Mean Corpuscular Volume 84.6 fL (80.0-98.0); Mean Platelet Volume 11.9 fL (9.4-12.3); Monocytes Absolute Auto 0.4 X10*3/uL (0.1-1.2); Monocytes Percent Auto 6.6 % (2-11); Neutrophils Absolute Auto 4.6 x10*3/uL (2.0-8.3); Neutrophils Percent Auto 75.3 % (45-73); Platelet Count 213 X10*3/uL (160-400); Red Blood Count 5.21 X10*6/uL (4.20-5.50); Red Cell Distribution Width 17.9 % (11.0-16.0); White Blood Count 6.2 X10*3/uL (4.8-10.8)
[2022-01-14 12:24] LABS: Anion Gap 21 (12-20); Blood Urea Nitrogen 12 mg/dL (9-16); Calcium 9.4 mg/dL (8.4-10.2); Carbon Dioxide 19 mmol/L (22-29); Chloride 105 mmol/L (96-108); Creatinine Clr Calc Pharmacy 69.9; Estimated Glomerular Filt Rate > 60; Glucose Random 89 mg/dL (60-115); Potassium 4.4 mmol/L (3.3-5.1); Sodium 141 mmol/L (135-145)
[2022-01-14 13:14] LABS: INTERNATIONAL NORM RATIO 0.9 (0.9-1.1); Prothrombin Time 10.8 SEC (10.0-13.1)
[2022-01-14 13:17] LABS: Partial Thromboplastin Time 34.4 SEC (26.0-36.4)
[2022-01-14 14:04] VITALS: BP 149/70; PULSE 71; RESP 16; O2SAT 98
[2022-01-21 19:46] LABS: Acetylcholine Receptor Binding <0.30 nmol/L
[2022-01-22 19:37] LABS: Acetylcholine Recep Modulating 8
[2022-01-23 20:17] LABS: Acetylcholine Recept. Blocking <15 (<15)
== END 2022-01-14 14:49 | disposition home or self-care (01) ==
PROVIDERS: Nurse Practitioner Family; Emergency Provider Emergency Medicine; PCP Internal Medicine
DX: H02.402 Unspecified ptosis of left eyelid (principal); Z86.73 Personal history of transient ischemic attack (TIA), and cerebral infarction without residual deficits; Z79.82 Long term (current) use of aspirin; Z79.02 Long term (current) use of antithrombotics/antiplatelets
CPT/HCPCS: 36415; 70450; 70551; 80048; 82947; 83519; 85025; 85610; 85730; 93005; 99285

== ENCOUNTER 2023-01-25 09:41 | Emergency (ER) | payer MEDICARE, SELFPAY ==
[2023-01-25 10:27] VITALS: BP 150/78; PULSE 88; RESP 16; TEMP 36.1; O2SAT 97; BMI 36.7
[2023-01-25 12:39] VITALS: BP 139/70; PULSE 77; RESP 16; TEMP 36.6; O2SAT 98
--- NOTE | 2023-01-25 13:06 | ED.GENADULT ---
HPI - General Adult General Chief complaint: General Medical Stated complaint: body swelling and tingling Time Seen by Provider: 01/25/23 12:41 Source: patient Mode of arrival: ambulatory Limitations: no limitations History of Present Illness HPI narrative: swelling lower extremities and hands and face for 1.5 months. Did not discuss with her doctor. Patient has a history of stroke. No chest pain no shortness of breath. Patient has baseline SOB secondary to her sjorgens syndrome. Onset (ago): month(s) Related Data Home Medications Medication Instructions Recorded Confirmed amlodipine 10 mg tablet 1 tab PO DAILY 02/25/20 02/25/20 gabapentin 100 mg capsule 1 cap PO BEDTIME 02/25/20 02/25/20 hydroxychloroquine 200 mg tablet 1 tab PO BID 02/25/20 02/25/20 mycophenolate mofetil 250 mg 1 cap PO BID 02/25/20 02/25/20 capsule omeprazole 40 mg capsule,delayed 1 cap PO DAILY 02/25/20 02/25/20 release pilocarpine HCl 5 mg tablet 2 tab PO TID 02/25/20 02/25/20 venlafaxine 75 mg tablet 1 tab PO DAILY 02/25/20 02/25/20 Previous Rx's Medication Instructions Recorded aspirin 81 mg tablet,delayed 81 mg PO DAILY #90 tabs 02/27/20 release atorvastatin 20 mg tablet (Lipitor) 20 mg PO BEDTIME #30 tabs 02/27/20 furosemide 20 mg tablet (Lasix) 20 mg PO DAILY #30 tabs 01/25/23 Allergies Allergy/AdvReac Type Severity Reaction Status Date / Time morphine [MORPHINE] Allergy Unknown ITCH Verified 02/26/20 11:17 From OXYCONTIN Allergy Unknown ITCH Uncoded 01/04/20 16:53 Review of Systems Review of Systems: Yes all other systems are reviewed and are negative Neurologic: Denies Sensory deficit (Neuro) PMFSH Past Medical History Medical History TIA (transient ischemic attack) Chemotherapy management, encounter for Cataracts, bilateral 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 Abnormal endoscopy of upper gastrointestinal tract Abnormal colonoscopy Colon polyps Full dentures Post-tubal ligation syndrome Carpal tunnel syndrome Sjogrens syndrome Sleep apnea GERD (gastroesophageal reflux disease) Migraine TIA (transient ischemic attack) Surgical History H/O parathyroidectomy History of lung biopsy S/P cholecystectomy Social History Social History Household Members: Spouse Housing: House Do you presently have visiting nurse or other home services: No Patient Tobacco Use Status: Never used Tobacco Smoked in Last 30 Days: No Use of substances other than those prescribed or required for medical reasons: No Advance Directives: No service: No Physical Exam ED Vital Signs: Vital Signs - 24 hr 01/25/23 10:27 01/25/23 12:39 01/25/23 14:30 Temperature 97 F 97.8 F 97.8 F Pulse Rate 88 77 72 Respiratory Rate 16 16 16 Blood Pressure 150/78 H 139/70 139/68 Pulse Oximetry 97 98 96 Oxygen Delivery Method Room Air Room Air Room Air BMI result Body Mass Index 36.7 Const General: healthy appearing Nutritional Appearance: average body habitus Orientation/consciousness: oriented to person and patient oriented x3 Limitations: no limitations HENMT Head: Yes normal to inspection Ears: external ears normal General nose exam: Normal external nose present Mouth: Normal oral and palatal mucosa present and oropharynx normal Throat: Yes posterior oropharynx normal Eyes General: appearance normal, both eyes and all related structures Neck Neck: Yes normal visual inspection Chest Chest palpation & inspection: normal inspection of the chest Resp Auscultation: clear to auscultation bilaterally Cardio Jugular venous distension: no JVD Rate: regular rate Rhythm: regular rhythm Heart sounds: S1 normal heart sound present and S2 normal heart sound present GI Inspection: Yes normal to inspection Palpation (GI): Soft to palpation, nontender and No hepatosplenomegaly present Auscultation: normal bowel sounds General: Yes no CVA tenderness Back/Spine/Pelvis Back: no CVA tenderness Skin General skin exam: no rashes or lesions noted Neuro General: oriented to person and patient oriented x3 Cranial nerves: Yes CN's II-XII intact bilaterally Motor exam (neuro): 5/5 motor strength present throughout Sensory Exam: No Sensory deficit (Neuro) Extrem Other: very little edema appreciated Psych Appearance: grossly normal Course Reevaluation(s) Reevaluation #1: no evidence of renal failure, liver failure, heart failure. Will place on lasix and dc home Time: 14:25 Medical Decision Making Differential Diagnosis Differential Diagnoses: The differential diagnosis associated with the presentation includes (congestive heart failure, renal failure, liver failure, proteinuria, anemia were all considered) Admission/Observation Consideration of admission/observation: Escalation of care including admission/observation considered (upon arrival patient was considered for admission) Lab Data MDM Lab Attestation statement: I reviewed the patient's lab results. (no renal failure, no liver failure, no proteinuria, no chf) 01/25/23 10:58 01/25/23 10:58 Labs: Lab Results 01/25/23 01/25/23 Range/Units 10:58 13:43 WBC 6.4 (4.8-10.8) X10*3/uL RBC 4.77 (4.20-5.50) X10*6/uL Hgb 13.0 (12.0-16.0) g/dl Hct 41.2 (37.0-47.0) % MCV 86.4 (80.0-98.0) fL MCH 27.3 (27.0-33.0) pg MCHC 31.6 (31.0-35.0) g/dl RDW 15.1 (11.0-16.0) % Plt Count 283 D (160-400) X10*3/uL MPV 10.9 (9.4-12.3) fL Immature Gran % (Auto) 0.2 (0.0-0.4) % Neut % (Auto) 78.8 H (45-73) % Lymph % (Auto) 14.1 L (20-40) % [place] % (Auto) 5.3 (2-11) % Eos % (Auto) 1.3 (0-4) % Baso % (Auto) 0.3 (0-2) % Lymph # (Auto) 0.9 L (1.2-4.9) X10*3/uL [place] # (Auto) 0.3 (0.1-1.2) X10*3/uL Eos # (Auto) 0.1 (0.0-0.4) X10*3/uL Baso # (Auto) 0.0 (0.0-0.2) X10*3/uL Abs Immat Gran (auto) 0.01 (0.00-0.03) X10*3/uL Absolute Neuts (auto) 5.1 (2.0-8.3) x10*3/uL Absolute Nucleated RBC 0.000 (0.0-0.012) X10*3/uL Nucleated RBC % (auto) 0.0 (0.0-0.2) /100WBC Sodium 141 (135-145) mmol/L Potassium 4.1 (3.3-5.1) mmol/L Chloride 105 (96-108) mmol/L Carbon Dioxide 25 (22-29) mmol/L Anion Gap 15 (12-20) BUN 15 (9-16) mg/dL Creatinine 0.77 (0.5-1.4) mg/dL Estim Creat Clear Calc 76.8 Estimated GFR > 60 Random Glucose 97 (60-115) mg/dL Calcium 9.2 (8.4-10.2) mg/dL Total Bilirubin 0.3 (0.0-1.0) mg/dL Direct Bilirubin 0.2 (0.0-0.5) mg/dL AST 15 (5-31) U/L ALT 15 (0-31) U/L Alkaline Phosphatase 96 (39-117) U/L B-Natriuretic Peptide 83 (<100) pg/mL Total Protein 7.2 (6.5-8.0) g/dL Albumin 4.2 (3.5-5.0) g/dL Urine Color Yellow Urine Appearance Clear Urine pH 8.0 (5.0-9.0) Ur Specific [place] 1.010 (1.005-1.025) Urine Protein Negative (Neg-Trace) mg/dL Urine Glucose (UA) Negative (Negative) mg/dL Urine Ketones Negative (Negative) mg/dL Urine Blood Negative (Negative) Urine Nitrite Negative (Negative) Ur Leukocyte Esterase Trace H (Negative) Urine RBC 0-2 (0-2) /HPF Urine WBC 0-5 (0-5) /HPF Ur Squamous Epith Cells 0-2 (0-2) /HPF Urine Bacteria None Seen (None Seen) Hyaline Casts 0-2 (0-2) /LPF Independent Interpretation I performed an independent interpretation of an: Plain X-Ray (CXR no chf) Independent Historian Clinical information obtained from an independent historian. History obtained from or confirmed by: Spouse Prescription Management I considered prescription management with: Antibiotic (no UTI seen) Chronic Conditions Patient?s care impacted by: Hypertension and Other (CVA) Discharge Plan Discharge Clinical Impression: Edema Qualifiers: Edema type: unspecified Qualified Code(s): R60.9 - Edema, unspecified Patient Disposition: Home, Self-Care Instructions: Edema (ED) Additional Instructions: ask your doctor if they should consider switching amlodipine Prescriptions: New furosemide [Lasix] 20 mg tablet 20 mg PO DAILY Qty: 30 0RF No Action amlodipine 10 mg tablet 1 tab PO DAILY gabapentin 100 mg capsule 1 cap PO BEDTIME hydroxychloroquine 200 mg tablet 1 tab PO BID pilocarpine HCl 5 mg tablet 2 tab PO TID venlafaxine 75 mg tablet 1 tab PO DAILY mycophenolate mofetil 250 mg capsule 1 cap PO BID Rx Instructions: 2 capsules morning, 1 capsule at night omeprazole 40 mg capsule,delayed release(DR/EC) 1 cap PO DAILY aspirin 81 mg tablet,delayed release (DR/EC) 81 mg PO DAILY Qty: 90 0RF atorvastatin [Lipitor] 20 mg tablet 20 mg PO BEDTIME Qty: 30 0RF Referrals: Aden Dinero MD [Primary Care Provider] - 5 days
[2023-01-25 14:30] VITALS: BP 139/68; PULSE 72; RESP 16; TEMP 36.6; O2SAT 96
[2023-01-25 15:21] VITALS: BP 152/77; PULSE 76; RESP 16; O2SAT 97
== END 2023-01-25 15:23 | disposition home or self-care (01) ==
PROVIDERS: Emergency Provider Emergency Medicine; PCP Internal Medicine
DX: R07.89 Other chest pain (principal); R60.0 Localized edema; R06.02 Shortness of breath; Z79.899 Other long term (current) drug therapy
CPT/HCPCS: 36415; 71046; 80048; 80076; 81001; 83880; 85025; 93005; 99283; 99284